=== PATIENT | male | born 1950 | race Caucasian/White ===

== ENCOUNTER 2016-09-05 00:49 | Inpatient (IN) | payer MEDICARE, OTHER ==
[~2016-09-05] VITALS: Ht 180.3 cm; Wt 87.1 kg
[~2016-09-05 00:49] MED LIST: AMLO-511 PO; ATOR20TA86 PO; CLOP75 PO; DIAZ10TA PO; DONE10TA PO; DOXE50CA4 PO; FINA5TAB41 PO; MAGOX PO; METO25TA6 PO; MIRT15 PO; PANT20TA PO; TAMS-1 PO; VITAD1000 PO; [UNRECOGNIZED DRUG - CODE] TD
[2016-09-05] MEDS ORDERED: ALBUTEROL SULFATE 5 MG/ML 20 ML NEB SOLN [BULK] NEB ONE (02:00)
[2016-09-05] MEDS ORDERED: LORazepam 2 MG/ML VIAL IVP ONE ×2 (02:00→03:15)
[2016-09-05] MEDS ORDERED: MORPHINE SULFATE 2 MG/ML SYRINGE IVP ONE (02:00)
[2016-09-05] MEDS ORDERED: IPRATROPIUM BROMIDE 0.5 MG/2.5 ML NEB SOLUTION NEB ONE (02:00)
[2016-09-05 02:24] LABS: BASOPHILS # (AUTO) 0.03 K/uL (0.00-0.20); BASOPHILS % (AUTO) 0.4 % (0.0-2.0); EOSINOPHILS # (AUTO) 0.04 K/uL (0.00-0.70); EOSINOPHILS % (AUTO) 0.56 % (1.0-6.0); HEMATOCRIT 29.9 % (41-53); HEMOGLOBIN 9.6 g/dL (13.5-17.5); LYMPHOCYTES # (AUTO) 1.7 K/uL (1.0-4.8); LYMPHOCYTES % (AUTO) 22.5 % (22.0-44.0); MEAN CORPUSCULAR HEMOGLOBIN 26.1 pg (26.0-34.0); MEAN CORPUSCULAR HGB CONC 32.1 G/dL (31.0-37.0); MEAN CORPUSCULAR VOLUME 81 fL (80-100); MONOCYTES # (AUTO) 0.9 K/uL (0.1-1.0); MONOCYTES % (AUTO) 11.8 % (2.0-9.0); NEUTROPHILS # (AUTO) 4.8 K/uL (1.8-7.7); NEUTROPHILS % (AUTO) 64.8 % (40.0-70.0); RED BLOOD CELL COUNT(AUTO) 3.68 MIL/uL (4.50-5.90); RED CELL DISTRIBUTION WIDTH 23.5 % (11.5-14.5); WHITE BLOOD COUNT (AUTO) 7.4 K/uL (4.5-11.0)
[2016-09-05 02:50] LABS: B-TYPE NATRIURETIC PEPTIDE 59 pg/mL (0-100)
[2016-09-05 02:56] LABS: INR 1.2 (0.9-1.1); PROTHROMBIN TIME 12.8 SEC (9.4-11.6)
[2016-09-05 03:01] LABS: ALANINE AMINOTRANSFERASE 59 U/L (12-78); ALBUMIN 2.6 g/dL (3.4-5.0); ANION GAP 9 mmol/L (8-16); ASPARTATE AMINOTRANSFERASE 156 U/L (15-37); BILIRUBIN,TOTAL 1.6 mg/dL (0.1-1.0); CALCIUM, TOTAL 7.5 mg/dL (8.8-10.5); CARBON DIOXIDE 29 mmol/L (22-29); CHLORIDE 101 mmol/L (98-107); CREATINE KINASE MB 2.7 ng/mL (0-5); CREATINE KINASE, TOTAL 170 U/L (39-308); CREATININE 0.85 mg/dL (0.60-1.30); GLOMERULAR FILTR. RATE CALC > 60 mL/min (>60); SODIUM SERUM 139 mmol/L (136-145); TOTAL PROTEIN, SERUM 7.2 g/dL (6.4-8.2); UREA NITROGEN, BLOOD 10 mg/dL (7-18)
[2016-09-05 03:03] LABS: POTASSIUM 2.9 mmol/L (3.5-5.1)
[2016-09-05 03:05] LABS: PLATELET COUNT (AUTO) 89 K/uL (150-450)
[2016-09-05] MEDS ORDERED: POTASSIUM CHLORIDE 20 MEQ ER TABLET PO ONE (03:15)
[2016-09-05] MEDS ORDERED: IOVERSOL 350 MG/ML 150 ML VIAL ONE (04:24)
[2016-09-05] MEDS ORDERED: SODIUM CHLORIDE 0.9% 100 ML ONE (04:25)
[2016-09-05] MEDS ORDERED: HYDROmorphone 2 MG/ML SYRINGE IVP ONE (04:30)
[2016-09-05] MEDS ORDERED: ACETAMINOPHEN 325 MG TABLET PO PRN (05:15)
[2016-09-05] MEDS ORDERED: HYDROmorphone 2 MG/ML SYRINGE IVP PRN (05:15)
[2016-09-05] MEDS ORDERED: HYDROCODONE/ACETAMINOPHEN 5-325 MG TABLET PO PRN (05:15)
[2016-09-05] MEDS ORDERED: PROCHLORPERAZINE EDISYLATE 5 MG/ML 2 ML VIAL IVP PRN (05:15)
[2016-09-05] MEDS ORDERED: MAGNESIUM SULFATE 2 GM, MVI, ADULT NO.1 WITH VIT K 10 ML, THIAMINE HCL 100 MG, FOLIC AC... IV ONE ×5 (05:15)
[2016-09-05] MEDS ORDERED: MORPHINE SULFATE 4 MG/ML SYRINGE IVP PRN ×2 (05:15→05:45)
[2016-09-05] MEDS ORDERED: MAGNESIUM HYDROXIDE SUSPENSION 30 ML UDCUP PO PRN ×2 (05:15→09:00)
[2016-09-05] MEDS ORDERED: LORazepam 2 MG/ML VIAL IVP PRN (05:15)
[2016-09-05 06:06] LABS: APPEARANCE,URINE CLEAR (CLEAR); GLUCOSE, URINE (UA) NEGATIVE (NEGATIVE); KETONES,URINE NEGATIVE (NEGATIVE); LEUKOCYTE ESTERASE ,URINE NEGATIVE (NEGATIVE); OCCULT BLOOD,URINE NEGATIVE (NEGATIVE); PROTEIN,URINE NEGATIVE (NEGATIVE)
[2016-09-05 06:08] LABS: ADD UA MICROSCOPIC NO
[2016-09-05 06:27] VITALS: BP 132/77
[2016-09-05] MEDS ORDERED: ALBUTEROL SULFATE 2.5 MG/0.5 ML NEB SOLUTION NEB SCH (07:00)
[2016-09-05] MEDS ORDERED: IPRATROPIUM BROMIDE 0.5 MG/2.5 ML NEB SOLUTION NEB SCH (07:00)
[2016-09-05] MEDS ORDERED: PNEUMOCOCCAL VACCINE POLYVALENT 0.5 ML VIAL [PPSV23] IM ONE (07:15)
[2016-09-05 07:49] VITALS: BP 147/87
[2016-09-05 08:38] LABS: BASOPHILS % (AUTO) 0.4 % (0.0-2.0); EOSINOPHILS % (AUTO) 1.1 % (1.0-6.0); HEMATOCRIT 29.6 % (41-53); HEMOGLOBIN 9.3 g/dL (13.5-17.5); LYMPHOCYTES # (AUTO) 1.2 K/uL (1.0-4.8); LYMPHOCYTES % (AUTO) 21.9 % (22.0-44.0); MEAN CORPUSCULAR HEMOGLOBIN 25.4 pg (26.0-34.0); MEAN CORPUSCULAR HGB CONC 31.4 G/dL (31.0-37.0); MEAN CORPUSCULAR VOLUME 81 fL (80-100); MONOCYTES # (AUTO) 0.6 K/uL (0.1-1.0); MONOCYTES % (AUTO) 11.6 % (2.0-9.0); NEUTROPHILS # (AUTO) 3.5 K/uL (1.8-7.7); PLATELET COUNT (AUTO) 69 K/uL (150-450); RED BLOOD CELL COUNT(AUTO) 3.66 MIL/uL (4.50-5.90); RED CELL DISTRIBUTION WIDTH 23.7 % (11.5-14.5); WHITE BLOOD COUNT (AUTO) 5.5 K/uL (4.5-11.0)
[2016-09-05 08:55] LABS: ALANINE AMINOTRANSFERASE 55 U/L (12-78); ALBUMIN 2.4 g/dL (3.4-5.0); ASPARTATE AMINOTRANSFERASE 132 U/L (15-37); SODIUM SERUM 138 mmol/L (136-145); TOTAL PROTEIN, SERUM 6.8 g/dL (6.4-8.2); UREA NITROGEN, BLOOD 10 mg/dL (7-18)
[2016-09-05] MEDS: DOCUSATE SODIUM 100 MG CAPSULE PO SCH ×2 (09:00→21:00)
[2016-09-05] MEDS ORDERED: LEVOFLOXACIN 750 MG/D5% WATER 150 ML IV ONE (09:00)
[2016-09-05] MEDS ORDERED: ENOXAPARIN SODIUM 40 MG/0.4 ML PF SYRINGE SQ SCH ×2 (09:00)
[2016-09-05] MEDS ORDERED: MAGNESIUM OXIDE 400 MG TABLET PO PRN (09:00)
[2016-09-05] MEDS ORDERED: MAGNESIUM SULFATE 4 GM/WATER 100 ML IV PRN (09:00)
[2016-09-05] MEDS ORDERED: PANTOPRAZOLE SODIUM 40 MG/VIAL IVP SCH (09:00)
[2016-09-05] MEDS ORDERED: SODIUM CHLORIDE 0.9% 1,000 ML IV ONE (09:00)
[2016-09-05] MEDS: PANTOPRAZOLE SODIUM 40 MG DR TABLET PO SCH (09:00)
[2016-09-05] MEDS ORDERED: POTASSIUM CHL 10 MEQ/WATER 50 ML IV PRN (09:00)
[2016-09-05] MEDS ORDERED: DOCUSATE SODIUM 100 MG CAPSULE PO SCH (09:00)
[2016-09-05 09:16] LABS: ANION GAP 7 mmol/L (8-16); BILIRUBIN,TOTAL 1.9 mg/dL (0.1-1.0); CALCIUM, TOTAL 7.1 mg/dL (8.8-10.5); CARBON DIOXIDE 31 mmol/L (22-29); CHLORIDE 100 mmol/L (98-107); CREATININE 0.83 mg/dL (0.60-1.30); GLOMERULAR FILTR. RATE CALC > 60 mL/min (>60)
[2016-09-05 09:23] LABS: POTASSIUM 2.7 mmol/L (3.5-5.1)
[2016-09-05] MEDS: POTASSIUM CHLORIDE 20 MEQ ER TABLET PO PRN ×2 (09:39→17:11)
[2016-09-05] MEDS: ASPIRIN 81 MG CHEWABLE TABLET PO SCH (09:40)
[2016-09-05] MEDS: MULTIVITAMINS WITH MINERALS, THERAPEUTIC TABLET PO SCH (09:41)
[2016-09-05 09:50] LABS: RBC MORPHOLOGY COMMENT ABNORMAL RBC MORPH
[2016-09-05 10:02] LABS: INR 1.3 (0.9-1.1); PROTHROMBIN TIME 13.3 SEC (9.4-11.6)
[2016-09-05 11:33] VITALS: BP 153/82
[2016-09-05] MEDS: NICOTINE 21 MG/24 HOUR PATCH TD SCH (12:12)
[2016-09-05] MEDS: LORazepam 2 MG/ML VIAL IVP PRN ×3 (12:12→20:31)
[2016-09-05] MEDS: ACETAMINOPHEN 325 MG TABLET PO PRN ×2 (12:13→21:33)
[2016-09-05] MEDS: MAGNESIUM SULFATE 2 GM in DEXTROSE 5%-WATER 50 ML IV PRN (12:43)
[2016-09-05 16:53] VITALS: BP 153/77
[2016-09-05] MEDS: HEPARIN SODIUM,PORCINE 5,000 UNITS/ML VIAL SQ SCH (17:11)
[2016-09-05] MEDS: ALBUTEROL SULFATE 2.5 MG/0.5 ML NEB SOLUTION NEB PRN (20:45)
[2016-09-05] MEDS ORDERED: 0.9% SODIUM CHLORIDE 5 ML NEB SOLUTION NEB ONE (20:45)
[2016-09-05 21:08] VITALS: BP 151/82
[2016-09-06 00:35] VITALS: BP 149/70
[2016-09-06] MEDS: LORazepam 2 MG/ML VIAL IVP PRN ×5 (00:46→20:52)
[2016-09-06] MEDS: HEPARIN SODIUM,PORCINE 5,000 UNITS/ML VIAL SQ SCH ×4 (00:46→23:44)
[2016-09-06 04:05] VITALS: BP 158/71
[2016-09-06 08:10] VITALS: BP 152/69
[2016-09-06] MEDS: ASPIRIN 81 MG CHEWABLE TABLET PO SCH (09:14)
[2016-09-06] MEDS: MULTIVITAMINS WITH MINERALS, THERAPEUTIC TABLET PO SCH (09:15)
[2016-09-06] MEDS: PANTOPRAZOLE SODIUM 40 MG DR TABLET PO SCH (09:16)
[2016-09-06] MEDS: DOCUSATE SODIUM 100 MG CAPSULE PO SCH ×2 (09:16→20:17)
[2016-09-06] MEDS: NICOTINE 21 MG/24 HOUR PATCH TD SCH (09:17)
[2016-09-06] MEDS ORDERED: 0.9% SODIUM CHLORIDE 5 ML NEB SOLUTION NEB ONE (10:47)
[2016-09-06] MEDS: ALBUTEROL SULFATE 2.5 MG/0.5 ML NEB SOLUTION NEB PRN (10:48)
[2016-09-06 11:22] VITALS: BP 157/82
[2016-09-06] MEDS ORDERED: SODIUM CHLORIDE 0.9% 250 ML IV ONE (12:08)
[2016-09-06] MEDS: MAGNESIUM SULFATE 2 GM in DEXTROSE 5%-WATER 50 ML IV PRN (12:34)
[2016-09-06 15:40] VITALS: BP 117/72
[2016-09-06 20:09] VITALS: BP 140/80
[2016-09-06] MEDS: ACETAMINOPHEN 325 MG TABLET PO PRN (20:18)
[2016-09-07 00:13] VITALS: BP 139/77
[2016-09-07] MEDS: ACETAMINOPHEN 325 MG TABLET PO PRN (00:44)
[2016-09-07] MEDS: LORazepam 2 MG/ML VIAL IVP PRN ×2 (00:44→09:06)
[2016-09-07 04:00] VITALS: BP 149/86
[2016-09-07 08:07] VITALS: BP 162/93
[2016-09-07] MEDS: NICOTINE 21 MG/24 HOUR PATCH TD SCH (09:05)
[2016-09-07] MEDS: MULTIVITAMINS WITH MINERALS, THERAPEUTIC TABLET PO SCH (09:05)
[2016-09-07] MEDS: ASPIRIN 81 MG CHEWABLE TABLET PO SCH (09:05)
[2016-09-07] MEDS: HEPARIN SODIUM,PORCINE 5,000 UNITS/ML VIAL SQ SCH (09:05)
[2016-09-07] MEDS: PANTOPRAZOLE SODIUM 40 MG DR TABLET PO SCH (09:05)
[2016-09-07] MEDS: DOCUSATE SODIUM 100 MG CAPSULE PO SCH (09:05)
[2016-09-07 09:28] VITALS: BP 164/88
[2016-09-07 09:37] LABS: GLUCOSE,POINT OF CARE 100 MG/DL (70-110)
[2016-09-07 11:27] VITALS: BP 134/70
[2016-09-07] MEDS ORDERED: SODIUM CHLORIDE 0.9% 100 ML ONE (12:20)
[2016-09-07] MEDS: MAGNESIUM SULFATE 2 GM in DEXTROSE 5%-WATER 50 ML IV PRN (12:42)
== END 2016-09-07 15:00 | disposition home or self-care (01) | DRG 896 ==
LOC: EMS 00:50 → 5N 04:15
PROVIDERS: ADMIT Internal Medicine; ATTEND Internal Medicine
PROC: 3E0234Z Introduction of Serum, Toxoid and Vaccine into Muscle, Percutaneous Approach (ICD-10-PCS; principal; 2016-09-05)
DX: F10.129 Alcohol abuse with intoxication, unspecified (principal); E43 Unspecified severe protein-calorie malnutrition; D68.4 Acquired coagulation factor deficiency; E87.6 Hypokalemia; R07.9 Chest pain, unspecified; K74.60 Unspecified cirrhosis of liver; F25.9 Schizoaffective disorder, unspecified; I10 Essential (primary) hypertension; E78.00 Pure hypercholesterolemia, unspecified; F32.9 Major depressive disorder, single episode, unspecified; F41.9 Anxiety disorder, unspecified; N40.0 Benign prostatic hyperplasia without lower urinary tract symptoms; K21.9 Gastro-esophageal reflux disease without esophagitis; B19.20 Unspecified viral hepatitis C without hepatic coma; E83.42 Hypomagnesemia; F03.90 Unspecified dementia, unspecified severity, without behavioral disturbance, psychotic disturbance, mood disturbance, and anxiety; F17.210 Nicotine dependence, cigarettes, uncomplicated; J44.9 Chronic obstructive pulmonary disease, unspecified; Y90.9 Presence of alcohol in blood, level not specified; Z79.02 Long term (current) use of antithrombotics/antiplatelets; Z23 Encounter for immunization; Z79.899 Other long term (current) drug therapy; Z91.19 Patient's noncompliance with other medical treatment and regimen; Z59.0 Homelessness; Z86.73 Personal history of transient ischemic attack (TIA), and cerebral infarction without residual deficits; Z68.26 Body mass index [BMI] 26.0-26.9, adult
CPT/HCPCS: 71275; 82962; 83735; 84132; 85379; 90471; 93005; 94640; 96374; 96375; 96376; 97163; 97530; 99285; C9113; G0480; J0780; J1170; J1644; J1650; J1956; J2060; J2270; J3411; J3475; J3490; J7030; J7050; J7060

== ENCOUNTER 2017-05-30 23:00 | Emergency (ER) | payer MEDICARE, OTHER ==
[~2017-05-30] VITALS: Ht 180.3 cm; Wt 87.0 kg
[~2017-05-30 23:00] MED LIST changes: -DIAZ10TA PO; -DONE10TA PO; +DONE10TA8 PO; -DOXE50CA4 PO; +NICO-704 TD; -[UNRECOGNIZED DRUG - CODE] TD
[2017-05-31 00:18] LABS: ANION GAP 14 mmol/L (8-16); CARBON DIOXIDE 23 mmol/L (22-29); CHLORIDE 98 mmol/L (98-107); CREATININE 2.24 mg/dL (0.60-1.30); GLOMERULAR FILTR. RATE CALC 29 mL/min (>60); GLUCOSE,RANDOM 69 mg/dL (70-110); POTASSIUM 4.6 mmol/L (3.5-5.1); SODIUM SERUM 135 mmol/L (136-145); UREA NITROGEN, BLOOD 45 mg/dL (7-18)
[2017-05-31 00:22] LABS: ACETAMINOPHEN 8 mcg/mL (10-30); ALANINE AMINOTRANSFERASE 58 U/L (12-78); ALBUMIN 3.7 g/dL (3.4-5.0); ALKALINE PHOSPHATASE 101 U/L (46-116); ASPARTATE AMINOTRANSFERASE 84 U/L (15-37); BILIRUBIN,TOTAL 0.8 mg/dL (0.1-1.0); SALICYLATE < 2.8 mg/dL (2.8-20.0); TOTAL PROTEIN, SERUM 7.9 g/dL (6.4-8.2)
[2017-05-31 00:27] LABS: BASOPHILS % (AUTO) 0.4 % (0.0-2.0); HEMATOCRIT 34.1 % (41-53); HEMOGLOBIN 10.9 g/dL (13.5-17.5); LYMPHOCYTES # (AUTO) 1.6 K/uL (1.0-4.8); LYMPHOCYTES % (AUTO) 20.7 % (22.0-44.0); MEAN CORPUSCULAR HEMOGLOBIN 24.8 pg (26.0-34.0); MEAN CORPUSCULAR HGB CONC 32.1 G/dL (31.0-37.0); MEAN CORPUSCULAR VOLUME 77 fL (80-100); MONOCYTES % (AUTO) 12.8 % (2.0-9.0); NEUTROPHILS # (AUTO) 4.7 K/uL (1.8-7.7); NEUTROPHILS % (AUTO) 62.1 % (40.0-70.0); PLATELET COUNT (AUTO) 121 K/uL (150-450); RED BLOOD CELL COUNT(AUTO) 4.41 MIL/uL (4.50-5.90); RED CELL DISTRIBUTION WIDTH 19.6 % (11.5-14.5)
[2017-05-31] MEDS ORDERED: SODIUM CHLORIDE 0.9% 1,000 ML IV ONE (01:00)
[2017-05-31 02:41] VITALS: BP 107/55
== END 2017-05-31 03:13 | disposition home or self-care (01) ==
LOC: EMS 05-31 00:38
DX: T40.2X1A Poisoning by other opioids, accidental (unintentional), initial encounter (principal); N28.9 Disorder of kidney and ureter, unspecified; I10 Essential (primary) hypertension; K21.9 Gastro-esophageal reflux disease without esophagitis; J44.9 Chronic obstructive pulmonary disease, unspecified; F17.210 Nicotine dependence, cigarettes, uncomplicated; Y92.89 Other specified places as the place of occurrence of the external cause
CPT/HCPCS: 36415; 80053; 85025; 99284; G0480 ×2; G0481; J7030

== ENCOUNTER 2018-01-19 09:33 | Emergency (ER) | payer MEDICARE, OTHER ==
[~2018-01-19] VITALS: Ht 177.8 cm; Wt 93.2 kg
[~2018-01-19 09:33] MED LIST changes: +AMLO-512 PO; +CARV6 PO; -CLOP75 PO; +FURO40 PO; +HYDR-309 PO; +LISI40TA4 PO; +LORA1TAB3 PO; -MAGOX PO; -METO25TA6 PO; -NICO-704 TD; +OMEP20 PO; -PANT20TA PO; +PARO20TA24 PO; +RIFAX550 PO
[2018-01-19] MEDS ORDERED: SODIUM CHLORIDE 0.9% 1,000 ML IV ONE (10:45)
[2018-01-19 10:49] LABS: BASOPHILS % (AUTO) 0.4 % (0.0-2.0); EOSINOPHILS % (AUTO) 4.5 % (1.0-6.0); HEMATOCRIT 39.7 % (41-53); HEMOGLOBIN 13.6 g/dL (13.5-17.5); LYMPHOCYTES # (AUTO) 1.4 K/uL (1.0-4.8); LYMPHOCYTES % (AUTO) 24.1 % (22.0-44.0); MEAN CORPUSCULAR HGB CONC 34.3 G/dL (31.0-37.0); MEAN CORPUSCULAR VOLUME 102 fL (80-100); MONOCYTES # (AUTO) 0.7 K/uL (0.1-1.0); MONOCYTES % (AUTO) 11.8 % (2.0-9.0); NEUTROPHILS # (AUTO) 3.5 K/uL (1.8-7.7); NEUTROPHILS % (AUTO) 59.2 % (40.0-70.0); PLATELET COUNT (AUTO) 69 K/uL (150-450); RED CELL DISTRIBUTION WIDTH 14.1 % (11.5-14.5)
[2018-01-19 10:59] LABS: CALCIUM, TOTAL 8.8 mg/dL (8.8-10.5); CREATININE 1.77 mg/dL (0.60-1.30); POTASSIUM 3.9 mmol/L (3.5-5.1)
[2018-01-19 11:05] LABS: ALBUMIN 2.9 g/dL (3.4-5.0); BILIRUBIN,TOTAL 1.2 mg/dL (0.1-1.0); TOTAL PROTEIN, SERUM 7.1 g/dL (6.4-8.2)
[2018-01-19 11:07] LABS: APPEARANCE,URINE CLOUDY (CLEAR); BILIRUBIN,URINE NEGATIVE (NEGATIVE); GLUCOSE, URINE (UA) NEGATIVE (NEGATIVE); KETONES,URINE NEGATIVE (NEGATIVE); LEUKOCYTE ESTERASE ,URINE LARGE (NEGATIVE); NITRATE,URINE POSITIVE (NEGATIVE); OCCULT BLOOD,URINE NEGATIVE (NEGATIVE); PROTEIN,URINE NEGATIVE (NEGATIVE)
[2018-01-19 11:09] LABS: AMPHET/METH SCREEN,URINE NEGATIVE (NEGATIVE); BARBITURATE SCREEN, URINE NEGATIVE (NEGATIVE); BENZODIAZEPINES SCREEN,URINE NEGATIVE (NEGATIVE); CANNABINOID SCREEN,URINE NEGATIVE (NEGATIVE); COCAINE SCREEN,URINE NEGATIVE (NEGATIVE); METHADONE SCREEN, URINE NEGATIVE (NEGATIVE); OPIATE SCREEN,URINE POSITIVE (NEGATIVE)
[2018-01-19 11:10] LABS: PHENCYCLIDINE SCREEN,URINE NEGATIVE (NEGATIVE)
[2018-01-19 11:17] LABS: BACTERIA,URINE Moderate /HPF (None Seen); RBC,URINE None Seen /HPF (0-2); WBC,URINE 26-50 /HPF (0-5)
[2018-01-19 11:18] LABS: SQUAMOUS EPITHELIAL CELL,UR Few /LPF (None Seen)
[2018-01-19] MEDS ORDERED: CefTRIAXone SODIUM 1 GM in DEXTROSE 5%-WATER 10 ML IV ONE (11:30)
[2018-01-19] MEDS ORDERED: ACETAMINOPHEN 160 MG/5 ML SUSPENSION UDCUP PO ONE (12:15)
[2018-01-19 12:38] VITALS: BP 125/60
== END 2018-01-19 13:05 | disposition home or self-care (01) ==
LOC: EMS 09:34
DX: N39.0 Urinary tract infection, site not specified (principal); E86.0 Dehydration; R55 Syncope and collapse; N19 Unspecified kidney failure; F11.20 Opioid dependence, uncomplicated; N40.0 Benign prostatic hyperplasia without lower urinary tract symptoms; J44.9 Chronic obstructive pulmonary disease, unspecified; I10 Essential (primary) hypertension; I48.91 Unspecified atrial fibrillation; G40.909 Epilepsy, unspecified, not intractable, without status epilepticus; F10.20 Alcohol dependence, uncomplicated; Y90.9 Presence of alcohol in blood, level not specified; F32.9 Major depressive disorder, single episode, unspecified; F17.210 Nicotine dependence, cigarettes, uncomplicated; Z90.89 Acquired absence of other organs; Z98.890 Other specified postprocedural states; Z88.6 Allergy status to analgesic agent; Z88.5 Allergy status to narcotic agent; Z79.899 Other long term (current) drug therapy
CPT/HCPCS: 36415; 71045; 80053; 80307; 81001; 82550; 82948; 83880; 84484; 85025; 87077; 87086; 87186; 93005; 96361; 96374; 99285; J0696; J7030; J7060

== ENCOUNTER 2018-10-08 07:45 | Inpatient (IN) | payer MEDICARE, MEDICAID ==
[~2018-10-08] VITALS: Ht 180.3 cm; Wt 95.4 kg
[~2018-10-08 07:45] MED LIST changes: -AMLO-511 PO; +ATOR10TA84 PO; -ATOR20TA86 PO; -DONE10TA8 PO; -FINA5TAB41 PO; -FURO40 PO; -HYDR-309 PO; -LISI40TA4 PO; -LORA1TAB3 PO; -MIRT15 PO; +MULT-248 PO; -OMEP20 PO; -PARO20TA24 PO; -RIFAX550 PO; -VITAD1000 PO
[2018-10-08 09:06] LABS: BASOPHILS % (AUTO) 0.4 % (0.0-2.0); EOSINOPHILS % (AUTO) 4.2 % (1.0-6.0); HEMATOCRIT 40.1 % (41-53); HEMOGLOBIN 13.4 g/dL (13.5-17.5); LYMPHOCYTES % (AUTO) 17.9 % (22.0-44.0); MEAN CORPUSCULAR HEMOGLOBIN 33.3 pg (26.0-34.0); MEAN CORPUSCULAR HGB CONC 33.5 G/dL (31.0-37.0); MEAN CORPUSCULAR VOLUME 99 fL (80-100); MONOCYTES # (AUTO) 1.5 K/uL (0.1-1.0); MONOCYTES % (AUTO) 13.4 % (2.0-9.0); NEUTROPHILS # (AUTO) 7.1 K/uL (1.8-7.7); NEUTROPHILS % (AUTO) 64.1 % (40.0-70.0); PLATELET COUNT (AUTO) 177 K/uL (150-450); RED BLOOD CELL COUNT(AUTO) 4.04 MIL/uL (4.50-5.90); RED CELL DISTRIBUTION WIDTH 14.5 % (11.5-14.5)
[2018-10-08 09:13] LABS: ANION GAP 12 mmol/L (8-16); CARBON DIOXIDE 23 mmol/L (22-29); CHLORIDE 99 mmol/L (98-107); CREATININE 0.99 mg/dL (0.60-1.30); GLOMERULAR FILTR. RATE CALC > 60 mL/min (>60); GLUCOSE,RANDOM 106 mg/dL (70-110); POTASSIUM 3.7 mmol/L (3.5-5.1); SODIUM SERUM 134 mmol/L (136-145); UREA NITROGEN, BLOOD 22 mg/dL (7-18)
[2018-10-08 09:22] LABS: ALANINE AMINOTRANSFERASE 69 U/L (12-78); ALBUMIN 3.4 g/dL (3.4-5.0); ALKALINE PHOSPHATASE 163 U/L (46-116); ASPARTATE AMINOTRANSFERASE 94 U/L (15-37); BILIRUBIN,TOTAL 1.9 mg/dL (0.1-1.0); TOTAL PROTEIN, SERUM 7.9 g/dL (6.4-8.2)
[2018-10-08 10:52] LABS: AMPHET/METH SCREEN,URINE NEGATIVE (NEGATIVE); BARBITURATE SCREEN, URINE NEGATIVE (NEGATIVE); BENZODIAZEPINES SCREEN,URINE NEGATIVE (NEGATIVE); CANNABINOID SCREEN,URINE NEGATIVE (NEGATIVE); COCAINE SCREEN,URINE NEGATIVE (NEGATIVE); METHADONE SCREEN, URINE NEGATIVE (NEGATIVE); OPIATE SCREEN,URINE NEGATIVE (NEGATIVE)
[2018-10-08 10:53] LABS: PHENCYCLIDINE SCREEN,URINE NEGATIVE (NEGATIVE)
[2018-10-08] MEDS: LORazepam 2 MG TABLET PO PRN ×2 (13:34→20:51)
[2018-10-08] MEDS: CARVEDILOL 6.25 MG TABLET PO SCH (21:04)
[2018-10-08 21:43] VITALS: BP 140/90
[2018-10-09 06:45] LABS: CHOL/HDL RATIO 1.8 (4.2-7.3)
[2018-10-09] MEDS: CARVEDILOL 6.25 MG TABLET PO SCH ×2 (08:46→16:27)
[2018-10-09] MEDS: AmLODIPine BESYLATE 5 MG TABLET PO SCH (08:46)
[2018-10-09] MEDS: ATORVASTATIN CALCIUM 20 MG TABLET PO SCH (08:46)
[2018-10-09] MEDS: TAMSULOSIN HCL 0.4 MG CAPSULE PO SCH (08:46)
[2018-10-09] MEDS: MULTIVITAMINS WITH MINERALS, THERAPEUTIC TABLET PO SCH (08:46)
[2018-10-09] MEDS: LORazepam 2 MG TABLET PO PRN ×2 (08:50→14:23)
[2018-10-09 12:29] VITALS: BP 122/82
[2018-10-09 14:20] VITALS: BP 120/70
[2018-10-09] MEDS: ACETAMINOPHEN 325 MG TABLET PO PRN (14:23)
[2018-10-09] MEDS: HALOPERIDOL 5 MG TABLET PO PRN (14:23)
[2018-10-09 15:12] LABS: APPEARANCE,URINE CLOUDY (CLEAR); GLUCOSE, URINE (UA) NEGATIVE (NEGATIVE); KETONES,URINE NEGATIVE (NEGATIVE); LEUKOCYTE ESTERASE ,URINE SMALL (NEGATIVE); NITRATE,URINE NEGATIVE (NEGATIVE); OCCULT BLOOD,URINE NEGATIVE (NEGATIVE); PH,URINE 5.5 (5.0-8.0); PROTEIN,URINE NEGATIVE (NEGATIVE)
[2018-10-09 15:29] LABS: BILIRUBIN,URINE PRELIM. POSITIVE (NEGATIVE)
[2018-10-09 15:46] LABS: BACTERIA,URINE Many /HPF (None Seen)
[2018-10-09 15:47] LABS: RBC,URINE 0-2 /HPF (0-2); SQUAMOUS EPITHELIAL CELL,UR Rare /LPF (None Seen)
[2018-10-09 16:25] VITALS: BP 131/73
[2018-10-10] MEDS: ZOLPIDEM TARTRATE 10 MG TABLET PO PRN (01:24)
[2018-10-10] MEDS: MULTIVITAMINS WITH MINERALS, THERAPEUTIC TABLET PO SCH (08:02)
[2018-10-10] MEDS: ATORVASTATIN CALCIUM 20 MG TABLET PO SCH (08:02)
[2018-10-10] MEDS: RisperiDONE 2 MG TABLET PO SCH ×2 (08:02→18:06)
[2018-10-10] MEDS: TAMSULOSIN HCL 0.4 MG CAPSULE PO SCH (08:02)
[2018-10-10] MEDS: AmLODIPine BESYLATE 5 MG TABLET PO SCH (08:02)
[2018-10-10] MEDS: NITROFURANTOIN/NITROFURAN MAC 100 MG CAPSULE [MACROBID] PO SCH ×2 (08:02→18:06)
[2018-10-10] MEDS: CARVEDILOL 6.25 MG TABLET PO SCH ×2 (08:03→18:06)
[2018-10-10 09:21] VITALS: BP 124/72
[2018-10-10] MEDS: LORazepam 2 MG TABLET PO PRN ×2 (14:29→19:01)
[2018-10-10 17:00] VITALS: BP 126/63
[2018-10-10] MEDS: HALOPERIDOL 5 MG TABLET PO PRN (19:01)
[2018-10-11] MEDS: ZOLPIDEM TARTRATE 10 MG TABLET PO PRN ×2 (02:38→21:15)
[2018-10-11] MEDS: NITROFURANTOIN/NITROFURAN MAC 100 MG CAPSULE [MACROBID] PO SCH ×2 (08:30→16:17)
[2018-10-11] MEDS: ATORVASTATIN CALCIUM 20 MG TABLET PO SCH (08:30)
[2018-10-11] MEDS: CARVEDILOL 6.25 MG TABLET PO SCH ×2 (08:30→16:17)
[2018-10-11] MEDS: AmLODIPine BESYLATE 5 MG TABLET PO SCH (08:32)
[2018-10-11] MEDS: RisperiDONE 2 MG TABLET PO SCH ×2 (08:32→18:01)
[2018-10-11] MEDS: TAMSULOSIN HCL 0.4 MG CAPSULE PO SCH (08:32)
[2018-10-11] MEDS: MULTIVITAMINS WITH MINERALS, THERAPEUTIC TABLET PO SCH (08:32)
[2018-10-11] MEDS ORDERED: ALBUTEROL SULFATE 2.5 MG/0.5 ML NEB SOLUTION NEB PRN (08:45)
[2018-10-11] MEDS ORDERED: MUPIROCIN CALCIUM 2% 15 GM CREAM TP SCH (09:00)
[2018-10-11] MEDS: FUROSEMIDE 20 MG TABLET PO SCH ×2 (09:27→18:01)
[2018-10-11] MEDS: MUPIROCIN CALCIUM 2% 22 GM OINTMENT TP SCH ×2 (09:27→18:01)
[2018-10-11 09:49] VITALS: BP 149/77
[2018-10-11 16:00] VITALS: BP 137/70
[2018-10-11] MEDS: LORazepam 2 MG TABLET PO PRN ×2 (16:16→21:05)
[2018-10-11] MEDS: HALOPERIDOL 5 MG TABLET PO PRN ×2 (16:16→21:05)
[2018-10-11] MEDS: ALBUTEROL SULFATE 2.5 MG/0.5 ML NEB SOLUTION NEB PRN (17:08)
[2018-10-11] MEDS: IPRATROPIUM BROMIDE 0.5 MG/2.5 ML NEB SOLUTION NEB PRN (17:08)
[2018-10-11 19:01] LABS: ABG A-A DIFF O2 27.7 mmHg (10-20.0); ABG BASE EXCESS 5.7 mmol/L (-2.0-3.0); ABG CARBOXYHEMOGLOBIN 0.3 % (0.0-1.5); ABG METHEMOGLOBIN 0.3 % (0.0-1.5); ABG OXYGEN CONTENT 14.9 mL/dL (15.0-23.0); ABG OXYHEMOGLOBIN 92.4 % (94.0-100.0); ABG PCO2 43 mmHg (35-45); ABG PH 7.452 (7.35-7.450); ABG TOTAL HEMOGLOBIN 11.4 G/dL (12.0-18.0); O2 DEVICE,BLOOD GAS ROOM AIR (ROOM AIR); PO2, ARTERIAL BG 70.1 mmHg (79.0-87.0); SITE, BLOOD GAS LFT RADIAL; SOURCE, BLOOD GAS ARTERIAL; TEMPERATURE, FAHRENHEIT, BG 98.6 FAHREN (96.0-98.6)
[2018-10-11] MEDS: BUDESONIDE 0.5 MG/2 ML NEB SOLUTION NEB SCH (21:00)
[2018-10-11] MEDS: ALBUTEROL SULFATE 2.5 MG/0.5 ML NEB SOLUTION NEB SCH (21:57)
[2018-10-11] MEDS: IPRATROPIUM BROMIDE 0.5 MG/2.5 ML NEB SOLUTION NEB SCH (21:57)
[2018-10-12] MEDS: LORazepam 2 MG TABLET PO PRN ×3 (06:24→21:30)
[2018-10-12 07:06] LABS: BASOPHILS % (AUTO) 0.7 % (0.0-2.0); EOSINOPHILS % (AUTO) 5.3 % (1.0-6.0); HEMATOCRIT 37.9 % (41-53); HEMOGLOBIN 12.7 g/dL (13.5-17.5); LYMPHOCYTES # (AUTO) 1.6 K/uL (1.0-4.8); LYMPHOCYTES % (AUTO) 23.9 % (22.0-44.0); MEAN CORPUSCULAR HEMOGLOBIN 34.1 pg (26.0-34.0); MEAN CORPUSCULAR HGB CONC 33.5 G/dL (31.0-37.0); MEAN CORPUSCULAR VOLUME 102 fL (80-100); MONOCYTES # (AUTO) 0.9 K/uL (0.1-1.0); MONOCYTES % (AUTO) 12.7 % (2.0-9.0); NEUTROPHILS # (AUTO) 3.9 K/uL (1.8-7.7); NEUTROPHILS % (AUTO) 57.4 % (40.0-70.0); PLATELET COUNT (AUTO) 113 K/uL (150-450); RED BLOOD CELL COUNT(AUTO) 3.72 MIL/uL (4.50-5.90); RED CELL DISTRIBUTION WIDTH 14.9 % (11.5-14.5)
[2018-10-12] MEDS: MULTIVITAMINS WITH MINERALS, THERAPEUTIC TABLET PO SCH (07:56)
[2018-10-12] MEDS: RisperiDONE 2 MG TABLET PO SCH ×2 (07:56→17:04)
[2018-10-12] MEDS: AmLODIPine BESYLATE 5 MG TABLET PO SCH (07:56)
[2018-10-12] MEDS: NITROFURANTOIN/NITROFURAN MAC 100 MG CAPSULE [MACROBID] PO SCH ×2 (07:56→17:04)
[2018-10-12] MEDS: TAMSULOSIN HCL 0.4 MG CAPSULE PO SCH (07:56)
[2018-10-12] MEDS: ATORVASTATIN CALCIUM 20 MG TABLET PO SCH (07:56)
[2018-10-12] MEDS: CARVEDILOL 6.25 MG TABLET PO SCH ×2 (07:56→17:04)
[2018-10-12] MEDS: MUPIROCIN CALCIUM 2% 22 GM OINTMENT TP SCH ×2 (07:57→17:04)
[2018-10-12 08:16] LABS: ALANINE AMINOTRANSFERASE 51 U/L (12-78); ALBUMIN 2.9 g/dL (3.4-5.0); ALKALINE PHOSPHATASE 141 U/L (46-116); ANION GAP 12 mmol/L (8-16); ASPARTATE AMINOTRANSFERASE 73 U/L (15-37); BILIRUBIN,TOTAL 1.1 mg/dL (0.1-1.0); CALCIUM, TOTAL 8.6 mg/dL (8.8-10.5); CARBON DIOXIDE 29 mmol/L (22-29); CHLORIDE 103 mmol/L (98-107); CREATINE KINASE, TOTAL ONLY 71 U/L (39-308); CREATININE 0.91 mg/dL (0.60-1.30); GLOMERULAR FILTR. RATE CALC > 60 mL/min (>60); GLUCOSE,RANDOM 87 mg/dL (70-110); POTASSIUM 4.3 mmol/L (3.5-5.1); SODIUM SERUM 144 mmol/L (136-145); UREA NITROGEN, BLOOD 16 mg/dL (7-18)
[2018-10-12] MEDS ORDERED: FUROSEMIDE 20 MG TABLET PO SCH (09:00)
[2018-10-12] MEDS: BUDESONIDE 0.5 MG/2 ML NEB SOLUTION NEB SCH (09:07)
[2018-10-12] MEDS: ALBUTEROL SULFATE 2.5 MG/0.5 ML NEB SOLUTION NEB SCH (09:07)
[2018-10-12] MEDS: IPRATROPIUM BROMIDE 0.5 MG/2.5 ML NEB SOLUTION NEB SCH (09:07)
[2018-10-12 09:24] VITALS: BP 120/68
[2018-10-12] MEDS: HALOPERIDOL 5 MG TABLET PO PRN ×2 (16:20→21:30)
[2018-10-12 18:00] VITALS: BP 136/63
[2018-10-12] MEDS: ZOLPIDEM TARTRATE 10 MG TABLET PO PRN (22:24)
[2018-10-13] MEDS: NITROFURANTOIN/NITROFURAN MAC 100 MG CAPSULE [MACROBID] PO SCH ×2 (08:02→18:06)
[2018-10-13] MEDS: RisperiDONE 2 MG TABLET PO SCH ×2 (08:02→18:08)
[2018-10-13] MEDS: ATORVASTATIN CALCIUM 20 MG TABLET PO SCH (08:02)
[2018-10-13] MEDS: MULTIVITAMINS WITH MINERALS, THERAPEUTIC TABLET PO SCH (08:02)
[2018-10-13] MEDS: AmLODIPine BESYLATE 5 MG TABLET PO SCH (08:02)
[2018-10-13] MEDS: CARVEDILOL 6.25 MG TABLET PO SCH ×2 (08:02→18:06)
[2018-10-13] MEDS: TAMSULOSIN HCL 0.4 MG CAPSULE PO SCH (08:02)
[2018-10-13] MEDS: MUPIROCIN CALCIUM 2% 22 GM OINTMENT TP SCH ×2 (08:03→18:06)
[2018-10-13 08:33] VITALS: BP 150/79
[2018-10-13] MEDS: IPRATROPIUM BROMIDE 0.5 MG/2.5 ML NEB SOLUTION NEB SCH ×2 (10:52→19:17)
[2018-10-13] MEDS: ALBUTEROL SULFATE 2.5 MG/0.5 ML NEB SOLUTION NEB SCH ×2 (10:52→19:17)
[2018-10-13] MEDS: BUDESONIDE 0.5 MG/2 ML NEB SOLUTION NEB SCH ×2 (10:52→19:18)
[2018-10-13 18:04] VITALS: BP 123/65
[2018-10-13] MEDS ORDERED: ATOR20TA86 PO (18:54)
[2018-10-13] MEDS ORDERED: AMOXICILLIN TRIHYDRATE 500 MG CAPSULE PO ONE (20:45)
[2018-10-13] MEDS: ZOLPIDEM TARTRATE 10 MG TABLET PO PRN (21:20)
[2018-10-14] MEDS: LORazepam 2 MG TABLET PO PRN ×2 (01:37→18:58)
[2018-10-14] MEDS: HALOPERIDOL 5 MG TABLET PO PRN ×2 (01:37→18:58)
[2018-10-14 01:48] VITALS: BP 122/65
[2018-10-14] MEDS: MUPIROCIN CALCIUM 2% 22 GM OINTMENT TP SCH ×2 (08:28→16:54)
[2018-10-14] MEDS: CARVEDILOL 6.25 MG TABLET PO SCH ×2 (08:29→16:53)
[2018-10-14] MEDS: AMOXICILLIN TRIHYDRATE 500 MG CAPSULE PO SCH ×3 (08:29→16:53)
[2018-10-14] MEDS: ATORVASTATIN CALCIUM 20 MG TABLET PO SCH (08:29)
[2018-10-14] MEDS: MULTIVITAMINS WITH MINERALS, THERAPEUTIC TABLET PO SCH (08:31)
[2018-10-14] MEDS: TAMSULOSIN HCL 0.4 MG CAPSULE PO SCH (08:31)
[2018-10-14] MEDS: RisperiDONE 2 MG TABLET PO SCH ×2 (08:31→16:53)
[2018-10-14] MEDS: AmLODIPine BESYLATE 5 MG TABLET PO SCH (08:31)
[2018-10-14] MEDS: BUDESONIDE 0.5 MG/2 ML NEB SOLUTION NEB SCH ×2 (10:00→19:42)
[2018-10-14] MEDS: ALBUTEROL SULFATE 2.5 MG/0.5 ML NEB SOLUTION NEB SCH ×2 (10:00→19:42)
[2018-10-14] MEDS: IPRATROPIUM BROMIDE 0.5 MG/2.5 ML NEB SOLUTION NEB SCH ×2 (10:00→19:42)
[2018-10-14 11:29] VITALS: BP 111/76
[2018-10-14] MEDS ORDERED: MAGNESIUM OXIDE 400 MG TABLET PO SCH (11:30)
[2018-10-14] MEDS: ACETAMINOPHEN 325 MG TABLET PO PRN (19:11)
[2018-10-14 19:12] VITALS: BP 134/72
[2018-10-14] MEDS: ZOLPIDEM TARTRATE 10 MG TABLET PO PRN (21:25)
[2018-10-15 00:03] VITALS: BP 120/71
[2018-10-15] MEDS: LORazepam 2 MG TABLET PO PRN (00:05)
[2018-10-15] MEDS: HALOPERIDOL 5 MG TABLET PO PRN (01:55)
[2018-10-15 06:00] LABS: ALANINE AMINOTRANSFERASE 53 U/L (12-78); ALBUMIN 2.5 g/dL (3.4-5.0); ALKALINE PHOSPHATASE 123 U/L (46-116); ANION GAP 12 mmol/L (8-16); ASPARTATE AMINOTRANSFERASE 70 U/L (15-37); BILIRUBIN,TOTAL 0.7 mg/dL (0.1-1.0); CALCIUM, TOTAL 8.4 mg/dL (8.8-10.5); CARBON DIOXIDE 29 mmol/L (22-29); CHLORIDE 106 mmol/L (98-107); CREATINE KINASE, TOTAL ONLY 55 U/L (39-308); CREATININE 0.96 mg/dL (0.60-1.30); GLOMERULAR FILTR. RATE CALC > 60 mL/min (>60); GLUCOSE,RANDOM 118 mg/dL (70-110); POTASSIUM 4.4 mmol/L (3.5-5.1); SODIUM SERUM 147 mmol/L (136-145); TOTAL PROTEIN, SERUM 6.1 g/dL (6.4-8.2); UREA NITROGEN, BLOOD 26 mg/dL (7-18)
[2018-10-15 08:10] VITALS: BP 139/93
[2018-10-15] MEDS: RisperiDONE 2 MG TABLET PO SCH ×2 (08:14→16:47)
[2018-10-15] MEDS: AmLODIPine BESYLATE 5 MG TABLET PO SCH (08:14)
[2018-10-15] MEDS: TAMSULOSIN HCL 0.4 MG CAPSULE PO SCH (08:14)
[2018-10-15] MEDS: MAGNESIUM OXIDE 400 MG TABLET PO SCH ×2 (08:14→16:47)
[2018-10-15] MEDS: MULTIVITAMINS WITH MINERALS, THERAPEUTIC TABLET PO SCH (08:14)
[2018-10-15] MEDS: CARVEDILOL 6.25 MG TABLET PO SCH ×2 (08:15→16:45)
[2018-10-15] MEDS: ATORVASTATIN CALCIUM 20 MG TABLET PO SCH (08:15)
[2018-10-15] MEDS: AMOXICILLIN TRIHYDRATE 500 MG CAPSULE PO SCH ×3 (08:15→16:45)
[2018-10-15] MEDS: MUPIROCIN CALCIUM 2% 22 GM OINTMENT TP SCH ×2 (08:17→16:46)
[2018-10-15] MEDS: BUDESONIDE 0.5 MG/2 ML NEB SOLUTION NEB SCH (09:39)
[2018-10-15] MEDS: IPRATROPIUM BROMIDE 0.5 MG/2.5 ML NEB SOLUTION NEB SCH (09:40)
[2018-10-15] MEDS: ALBUTEROL SULFATE 2.5 MG/0.5 ML NEB SOLUTION NEB SCH (09:40)
[2018-10-15 16:00] VITALS: BP 144/72
[2018-10-16] MEDS: LORazepam 2 MG TABLET PO PRN (02:47)
[2018-10-16] MEDS: ZOLPIDEM TARTRATE 10 MG TABLET PO PRN (02:48)
[2018-10-16 02:54] VITALS: BP 121/69
[2018-10-16] MEDS: IPRATROPIUM BROMIDE 0.5 MG/2.5 ML NEB SOLUTION NEB SCH ×3 (05:32→16:31)
[2018-10-16] MEDS: ALBUTEROL SULFATE 2.5 MG/0.5 ML NEB SOLUTION NEB SCH ×3 (05:32→16:31)
[2018-10-16] MEDS: BUDESONIDE 0.5 MG/2 ML NEB SOLUTION NEB SCH ×3 (05:32→16:31)
[2018-10-16] MEDS: AmLODIPine BESYLATE 5 MG TABLET PO SCH (08:33)
[2018-10-16] MEDS: AMOXICILLIN TRIHYDRATE 500 MG CAPSULE PO SCH ×3 (08:33→17:34)
[2018-10-16] MEDS: TAMSULOSIN HCL 0.4 MG CAPSULE PO SCH (08:33)
[2018-10-16] MEDS: ATORVASTATIN CALCIUM 20 MG TABLET PO SCH (08:33)
[2018-10-16] MEDS: MULTIVITAMINS WITH MINERALS, THERAPEUTIC TABLET PO SCH (08:33)
[2018-10-16] MEDS: RisperiDONE 2 MG TABLET PO SCH ×2 (08:34→17:34)
[2018-10-16] MEDS: CARVEDILOL 6.25 MG TABLET PO SCH ×2 (08:34→17:34)
[2018-10-16] MEDS: MAGNESIUM OXIDE 400 MG TABLET PO SCH ×2 (08:35→17:34)
[2018-10-16 09:48] VITALS: BP 151/90
[2018-10-16] MEDS: ACETAMINOPHEN 325 MG TABLET PO PRN (12:38)
[2018-10-16 19:03] VITALS: BP 137/82
[2018-10-17] MEDS: ALBUTEROL SULFATE 2.5 MG/0.5 ML NEB SOLUTION NEB PRN (00:52)
[2018-10-17] MEDS: IPRATROPIUM BROMIDE 0.5 MG/2.5 ML NEB SOLUTION NEB PRN (00:52)
[2018-10-17 09:25] VITALS: BP 100/63
[2018-10-17] MEDS: ATORVASTATIN CALCIUM 20 MG TABLET PO SCH (09:54)
[2018-10-17] MEDS: CARVEDILOL 6.25 MG TABLET PO SCH (09:54)
[2018-10-17] MEDS: AMOXICILLIN TRIHYDRATE 500 MG CAPSULE PO SCH ×2 (09:54→13:11)
[2018-10-17] MEDS: MULTIVITAMINS WITH MINERALS, THERAPEUTIC TABLET PO SCH (09:56)
[2018-10-17] MEDS: AmLODIPine BESYLATE 5 MG TABLET PO SCH (09:56)
[2018-10-17] MEDS: MAGNESIUM OXIDE 400 MG TABLET PO SCH (09:56)
[2018-10-17] MEDS: TAMSULOSIN HCL 0.4 MG CAPSULE PO SCH (09:56)
[2018-10-17] MEDS: RisperiDONE 2 MG TABLET PO SCH (09:59)
[2018-10-17] MEDS: ALBUTEROL SULFATE 2.5 MG/0.5 ML NEB SOLUTION NEB SCH (10:02)
[2018-10-17] MEDS: IPRATROPIUM BROMIDE 0.5 MG/2.5 ML NEB SOLUTION NEB SCH (10:02)
[2018-10-17] MEDS: BUDESONIDE 0.5 MG/2 ML NEB SOLUTION NEB SCH (10:02)
[2018-10-17] MEDS ORDERED: RISP2 PO (12:13)
[2018-10-17] MEDS ORDERED: MAGOX PO (12:13)
[2018-10-17] MEDS ORDERED: AMOX500C2 PO (12:13)
[2018-10-17] MEDS ORDERED: BUDE0.5A3 NEB (12:13)
[2018-10-17] MEDS ORDERED: AUD NEB (12:13)
[2018-10-17] MEDS ORDERED: IPRNEB NEB (12:15)
== END 2018-10-17 14:15 | DRG 885 ==
LOC: EMS 07:48 → 3EC 21:13
PROVIDERS: ADMIT Psychiatry & Neurology Psychiatry; ATTEND Psychiatry & Neurology Psychiatry
DX: F25.9 Schizoaffective disorder, unspecified (principal); J44.1 Chronic obstructive pulmonary disease with (acute) exacerbation; N39.0 Urinary tract infection, site not specified; N40.0 Benign prostatic hyperplasia without lower urinary tract symptoms; E78.5 Hyperlipidemia, unspecified; K21.9 Gastro-esophageal reflux disease without esophagitis; I48.91 Unspecified atrial fibrillation; F10.10 Alcohol abuse, uncomplicated; Y90.9 Presence of alcohol in blood, level not specified; D64.9 Anemia, unspecified; D69.6 Thrombocytopenia, unspecified; B19.20 Unspecified viral hepatitis C without hepatic coma; I10 Essential (primary) hypertension; F17.200 Nicotine dependence, unspecified, uncomplicated; Z59.0 Homelessness; Z82.49 Family history of ischemic heart disease and other diseases of the circulatory system; Z86.73 Personal history of transient ischemic attack (TIA), and cerebral infarction without residual deficits; D72.829 Elevated white blood cell count, unspecified; E83.42 Hypomagnesemia; F32.9 Major depressive disorder, single episode, unspecified; F12.90 Cannabis use, unspecified, uncomplicated; B95.2 Enterococcus as the cause of diseases classified elsewhere; F17.210 Nicotine dependence, cigarettes, uncomplicated; R45.850 Homicidal ideations; Z91.19 Patient's noncompliance with other medical treatment and regimen
CPT/HCPCS: 36600; 82805; 83735; 87081; 87086; 93041; 94640; G0480

== ENCOUNTER 2018-10-22 11:28 | Inpatient (IN) | payer MEDICARE, MEDICAID ==
[~2018-10-22] VITALS: Ht 170.2 cm; Wt 96.3 kg
[~2018-10-22 11:28] MED LIST changes: -AMLO-512 PO; +AMLO10TA7 PO; +AMOX500C2 PO; -ATOR10TA84 PO; +ATOR20TA86 PO; +AUD NEB; +BUDE0.5A3 NEB; +IPRNEB NEB; +MAGOX PO; +RISP2 PO
[2018-10-22 12:28] LABS: BASOPHILS % (AUTO) 0.5 % (0.0-2.0); EOSINOPHILS % (AUTO) 0.7 % (1.0-6.0); HEMATOCRIT 39.2 % (41-53); LYMPHOCYTES # (AUTO) 2.3 K/uL (1.0-4.8); LYMPHOCYTES % (AUTO) 25.2 % (22.0-44.0); MEAN CORPUSCULAR HEMOGLOBIN 34.1 pg (26.0-34.0); MEAN CORPUSCULAR HGB CONC 33.2 G/dL (31.0-37.0); MEAN CORPUSCULAR VOLUME 103 fL (80-100); MONOCYTES # (AUTO) 0.9 K/uL (0.1-1.0); MONOCYTES % (AUTO) 9.9 % (2.0-9.0); NEUTROPHILS # (AUTO) 5.7 K/uL (1.8-7.7); NEUTROPHILS % (AUTO) 63.7 % (40.0-70.0); PLATELET COUNT (AUTO) 159 K/uL (150-450); RED BLOOD CELL COUNT(AUTO) 3.82 MIL/uL (4.50-5.90); RED CELL DISTRIBUTION WIDTH 14.6 % (11.5-14.5)
[2018-10-22 12:38] LABS: ANION GAP 17 mmol/L (8-16); CALCIUM, TOTAL 8.9 mg/dL (8.8-10.5); CARBON DIOXIDE 20 mmol/L (22-29); CHLORIDE 102 mmol/L (98-107); CREATININE 1.11 mg/dL (0.60-1.30); GLOMERULAR FILTR. RATE CALC > 60 mL/min (>60); GLUCOSE,RANDOM 75 mg/dL (70-110); POTASSIUM 4.1 mmol/L (3.5-5.1); SODIUM SERUM 139 mmol/L (136-145); UREA NITROGEN, BLOOD 33 mg/dL (7-18)
[2018-10-22 12:44] LABS: ALANINE AMINOTRANSFERASE 118 U/L (12-78); ALBUMIN 2.9 g/dL (3.4-5.0); ALKALINE PHOSPHATASE 158 U/L (46-116); ASPARTATE AMINOTRANSFERASE 187 U/L (15-37); BILIRUBIN,TOTAL 1.3 mg/dL (0.1-1.0); TOTAL PROTEIN, SERUM 7.4 g/dL (6.4-8.2)
[2018-10-22] MEDS ORDERED: HALOPERIDOL LACTATE 5 MG/ML VIAL IM ONE (12:45)
[2018-10-22] MEDS ORDERED: LORazepam 2 MG/ML VIAL IM ONE (12:45)
[2018-10-22] MEDS ORDERED: LORazepam 2 MG TABLET PO ONE (13:00)
[2018-10-22] MEDS ORDERED: HALOPERIDOL 5 MG TABLET PO ONE (13:00)
[2018-10-22 16:43] LABS: AMPHET/METH SCREEN,URINE NEGATIVE (NEGATIVE); BARBITURATE SCREEN, URINE NEGATIVE (NEGATIVE); BENZODIAZEPINES SCREEN,URINE NEGATIVE (NEGATIVE); CANNABINOID SCREEN,URINE NEGATIVE (NEGATIVE); COCAINE SCREEN,URINE NEGATIVE (NEGATIVE); METHADONE SCREEN, URINE NEGATIVE (NEGATIVE); OPIATE SCREEN,URINE NEGATIVE (NEGATIVE)
[2018-10-22 16:44] LABS: PHENCYCLIDINE SCREEN,URINE NEGATIVE (NEGATIVE)
[2018-10-22 17:50] VITALS: BP 132/80
[2018-10-22] MEDS ORDERED: BUDESONIDE 0.5 MG/2 ML NEB SOLUTION NEB PRN (19:15)
[2018-10-22] MEDS: LORazepam 2 MG TABLET PO PRN (19:15)
[2018-10-22] MEDS ORDERED: IPRATROPIUM BROMIDE 0.5 MG/2.5 ML NEB SOLUTION NEB PRN (19:15)
[2018-10-22] MEDS ORDERED: ALBUTEROL SULFATE 2.5 MG/0.5 ML NEB SOLUTION NEB PRN (19:15)
[2018-10-23 00:48] VITALS: BP 138/89
[2018-10-23] MEDS: LORazepam 2 MG TABLET PO PRN ×3 (00:49→19:40)
[2018-10-23] MEDS: HALOPERIDOL 5 MG TABLET PO PRN (04:42)
[2018-10-23] MEDS: ATORVASTATIN CALCIUM 20 MG TABLET PO SCH (09:18)
[2018-10-23] MEDS: CARVEDILOL 6.25 MG TABLET PO SCH ×2 (09:18→16:09)
[2018-10-23] MEDS: MAGNESIUM OXIDE 400 MG TABLET PO SCH ×2 (09:18→16:09)
[2018-10-23] MEDS: TAMSULOSIN HCL 0.4 MG CAPSULE PO SCH (09:18)
[2018-10-23] MEDS: AmLODIPine BESYLATE 5 MG TABLET PO SCH (09:19)
[2018-10-23] MEDS: RisperiDONE 2 MG TABLET PO SCH ×2 (09:19→16:09)
[2018-10-23] MEDS: MULTIVITAMINS WITH MINERALS, THERAPEUTIC TABLET PO SCH (09:20)
[2018-10-23 13:10] VITALS: BP 140/79
[2018-10-23] MEDS ORDERED: AMLO5TAB9 PO (15:49)
[2018-10-23] MEDS: NICOTINE 21 MG/24 HOUR PATCH TD SCH (15:50)
[2018-10-23 16:10] VITALS: BP 145/70
[2018-10-23] MEDS: TIOTROPIUM BROMIDE 18 MCG/INH HANDIHALER [5] IH SCH (17:17)
[2018-10-23] MEDS: BUDESONIDE 0.5 MG/2 ML NEB SOLUTION NEB SCH (21:00)
[2018-10-24] MEDS: LORazepam 2 MG TABLET PO PRN (01:24)
[2018-10-24 08:07] VITALS: BP 148/92
[2018-10-24 10:10] VITALS: BP 114/83
[2018-10-24] MEDS: CARVEDILOL 6.25 MG TABLET PO SCH ×2 (10:24→16:15)
[2018-10-24] MEDS: MULTIVITAMINS WITH MINERALS, THERAPEUTIC TABLET PO SCH (10:24)
[2018-10-24] MEDS: AmLODIPine BESYLATE 5 MG TABLET PO SCH (10:24)
[2018-10-24] MEDS: RisperiDONE 2 MG TABLET PO SCH ×2 (10:24→16:15)
[2018-10-24] MEDS: MAGNESIUM OXIDE 400 MG TABLET PO SCH ×2 (10:24→16:15)
[2018-10-24] MEDS: TAMSULOSIN HCL 0.4 MG CAPSULE PO SCH (10:24)
[2018-10-24] MEDS: TIOTROPIUM BROMIDE 18 MCG/INH HANDIHALER [5] IH SCH (10:24)
[2018-10-24] MEDS: NICOTINE 21 MG/24 HOUR PATCH TD SCH (10:25)
[2018-10-24] MEDS: ATORVASTATIN CALCIUM 20 MG TABLET PO SCH (10:25)
[2018-10-24] MEDS: BUDESONIDE 0.5 MG/2 ML NEB SOLUTION NEB SCH ×2 (11:35→20:47)
[2018-10-24 16:31] VITALS: BP 132/69
[2018-10-24] MEDS: ZOLPIDEM TARTRATE 10 MG TABLET PO PRN (20:56)
[2018-10-25] MEDS: AmLODIPine BESYLATE 5 MG TABLET PO SCH (08:26)
[2018-10-25] MEDS: RisperiDONE 2 MG TABLET PO SCH ×2 (08:26→17:09)
[2018-10-25] MEDS: ATORVASTATIN CALCIUM 20 MG TABLET PO SCH (08:26)
[2018-10-25] MEDS: FUROSEMIDE 20 MG TABLET PO SCH (08:26)
[2018-10-25] MEDS: TIOTROPIUM BROMIDE 18 MCG/INH HANDIHALER [5] IH SCH (08:26)
[2018-10-25] MEDS: MAGNESIUM OXIDE 400 MG TABLET PO SCH ×2 (08:26→17:10)
[2018-10-25] MEDS: POTASSIUM CHLORIDE 10 MEQ ER TABLET PO SCH (08:27)
[2018-10-25] MEDS: TAMSULOSIN HCL 0.4 MG CAPSULE PO SCH (08:27)
[2018-10-25] MEDS: CARVEDILOL 6.25 MG TABLET PO SCH ×2 (08:27→17:08)
[2018-10-25] MEDS: MULTIVITAMINS WITH MINERALS, THERAPEUTIC TABLET PO SCH (08:27)
[2018-10-25] MEDS: NICOTINE 21 MG/24 HOUR PATCH TD SCH (08:39)
[2018-10-25 09:00] VITALS: BP 114/66
[2018-10-25] MEDS: HALOPERIDOL 5 MG TABLET PO PRN ×2 (09:22→21:10)
[2018-10-25] MEDS: BUDESONIDE 0.5 MG/2 ML NEB SOLUTION NEB SCH ×2 (11:05→20:21)
[2018-10-25 16:30] VITALS: BP 138/72
[2018-10-25] MEDS: LORazepam 2 MG TABLET PO PRN ×2 (17:09→21:10)
[2018-10-25] MEDS: ZOLPIDEM TARTRATE 10 MG TABLET PO PRN (22:46)
[2018-10-26] MEDS: HALOPERIDOL 5 MG TABLET PO PRN ×2 (01:19→18:10)
[2018-10-26] MEDS: LORazepam 2 MG TABLET PO PRN ×3 (01:19→18:12)
[2018-10-26 08:45] VITALS: BP 145/95
[2018-10-26] MEDS: RisperiDONE 2 MG TABLET PO SCH ×2 (09:28→16:25)
[2018-10-26] MEDS: CARVEDILOL 6.25 MG TABLET PO SCH ×2 (09:28→16:25)
[2018-10-26] MEDS: TAMSULOSIN HCL 0.4 MG CAPSULE PO SCH (09:28)
[2018-10-26] MEDS: POTASSIUM CHLORIDE 10 MEQ ER TABLET PO SCH (09:29)
[2018-10-26] MEDS: MULTIVITAMINS WITH MINERALS, THERAPEUTIC TABLET PO SCH (09:29)
[2018-10-26] MEDS: ATORVASTATIN CALCIUM 20 MG TABLET PO SCH (09:29)
[2018-10-26] MEDS: AmLODIPine BESYLATE 5 MG TABLET PO SCH (09:29)
[2018-10-26] MEDS: FUROSEMIDE 20 MG TABLET PO SCH (09:31)
[2018-10-26] MEDS: MAGNESIUM OXIDE 400 MG TABLET PO SCH ×2 (09:31→16:25)
[2018-10-26] MEDS: NICOTINE 21 MG/24 HOUR PATCH TD SCH (09:43)
[2018-10-26] MEDS: TIOTROPIUM BROMIDE 18 MCG/INH HANDIHALER [5] IH SCH (09:47)
[2018-10-26] MEDS: BUDESONIDE 0.5 MG/2 ML NEB SOLUTION NEB SCH ×2 (10:02→22:59)
[2018-10-26 16:14] VITALS: BP 141/73
[2018-10-26] MEDS: ZOLPIDEM TARTRATE 10 MG TABLET PO PRN (20:39)
[2018-10-27] MEDS: HALOPERIDOL 5 MG TABLET PO PRN (00:36)
[2018-10-27] MEDS: LORazepam 2 MG TABLET PO PRN ×3 (00:36→21:05)
[2018-10-27 00:37] VITALS: BP 139/85
[2018-10-27 09:00] VITALS: BP 124/60
[2018-10-27] MEDS: FUROSEMIDE 20 MG TABLET PO SCH ×2 (09:39→17:25)
[2018-10-27] MEDS: CARVEDILOL 6.25 MG TABLET PO SCH ×2 (09:39→16:13)
[2018-10-27] MEDS: POTASSIUM CHLORIDE 10 MEQ ER TABLET PO SCH (09:39)
[2018-10-27] MEDS: TIOTROPIUM BROMIDE 18 MCG/INH HANDIHALER [5] IH SCH (09:39)
[2018-10-27] MEDS: RisperiDONE 2 MG TABLET PO SCH ×2 (09:40→16:13)
[2018-10-27] MEDS: MAGNESIUM OXIDE 400 MG TABLET PO SCH ×2 (09:40→16:13)
[2018-10-27] MEDS: MULTIVITAMINS WITH MINERALS, THERAPEUTIC TABLET PO SCH (09:41)
[2018-10-27] MEDS: AmLODIPine BESYLATE 5 MG TABLET PO SCH (09:41)
[2018-10-27] MEDS: ATORVASTATIN CALCIUM 20 MG TABLET PO SCH (09:42)
[2018-10-27] MEDS: NICOTINE 21 MG/24 HOUR PATCH TD SCH (09:44)
[2018-10-27] MEDS: TAMSULOSIN HCL 0.4 MG CAPSULE PO SCH (09:46)
[2018-10-27] MEDS: BUDESONIDE 0.5 MG/2 ML NEB SOLUTION NEB SCH ×2 (12:29→20:26)
[2018-10-27 16:10] VITALS: BP 118/75
[2018-10-27] MEDS: ZOLPIDEM TARTRATE 10 MG TABLET PO PRN (21:05)
[2018-10-28 02:04] VITALS: BP 128/62
[2018-10-28] MEDS: LORazepam 2 MG TABLET PO PRN (03:01)
[2018-10-28 06:47] LABS: ALANINE AMINOTRANSFERASE 91 U/L (12-78); ALBUMIN 2.7 g/dL (3.4-5.0); ALKALINE PHOSPHATASE 136 U/L (46-116); ANION GAP 8 mmol/L (8-16); ASPARTATE AMINOTRANSFERASE 93 U/L (15-37); BILIRUBIN,TOTAL 1.2 mg/dL (0.1-1.0); CALCIUM, TOTAL 9.1 mg/dL (8.8-10.5); CARBON DIOXIDE 29 mmol/L (22-29); CHLORIDE 103 mmol/L (98-107); GLOMERULAR FILTR. RATE CALC > 60 mL/min (>60); GLUCOSE,RANDOM 91 mg/dL (70-110); POTASSIUM 3.8 mmol/L (3.5-5.1); SODIUM SERUM 140 mmol/L (136-145); TOTAL PROTEIN, SERUM 6.4 g/dL (6.4-8.2); UREA NITROGEN, BLOOD 22 mg/dL (7-18)
[2018-10-28 06:48] LABS: B-TYPE NATRIURETIC PEPTIDE 459 pg/mL (0-100)
[2018-10-28 08:10] VITALS: BP 113/67
[2018-10-28] MEDS: AmLODIPine BESYLATE 5 MG TABLET PO SCH (08:20)
[2018-10-28] MEDS: POTASSIUM CHLORIDE 10 MEQ ER TABLET PO SCH (08:21)
[2018-10-28] MEDS: MAGNESIUM OXIDE 400 MG TABLET PO SCH ×2 (08:21→16:38)
[2018-10-28] MEDS: FUROSEMIDE 20 MG TABLET PO SCH ×2 (08:21→16:38)
[2018-10-28] MEDS: CARVEDILOL 6.25 MG TABLET PO SCH ×2 (08:22→16:38)
[2018-10-28] MEDS: RisperiDONE 2 MG TABLET PO SCH ×2 (08:22→16:38)
[2018-10-28] MEDS: ATORVASTATIN CALCIUM 20 MG TABLET PO SCH (08:22)
[2018-10-28] MEDS: TAMSULOSIN HCL 0.4 MG CAPSULE PO SCH (08:22)
[2018-10-28] MEDS: MULTIVITAMINS WITH MINERALS, THERAPEUTIC TABLET PO SCH (08:22)
[2018-10-28] MEDS: TIOTROPIUM BROMIDE 18 MCG/INH HANDIHALER [5] IH SCH (08:24)
[2018-10-28] MEDS: NICOTINE 21 MG/24 HOUR PATCH TD SCH (08:31)
[2018-10-28] MEDS: BUDESONIDE 0.5 MG/2 ML NEB SOLUTION NEB SCH ×2 (09:39→20:55)
[2018-10-28 16:50] VITALS: BP 105/61
[2018-10-28] MEDS: ZOLPIDEM TARTRATE 10 MG TABLET PO PRN (20:27)
[2018-10-29] MEDS: LORazepam 2 MG TABLET PO PRN (05:47)
[2018-10-29] MEDS: MAGNESIUM OXIDE 400 MG TABLET PO SCH (08:18)
[2018-10-29] MEDS: TAMSULOSIN HCL 0.4 MG CAPSULE PO SCH (08:18)
[2018-10-29] MEDS: CARVEDILOL 6.25 MG TABLET PO SCH (08:18)
[2018-10-29] MEDS: POTASSIUM CHLORIDE 10 MEQ ER TABLET PO SCH (08:18)
[2018-10-29] MEDS: FUROSEMIDE 20 MG TABLET PO SCH (08:18)
[2018-10-29] MEDS: MULTIVITAMINS WITH MINERALS, THERAPEUTIC TABLET PO SCH (08:19)
[2018-10-29] MEDS: AmLODIPine BESYLATE 5 MG TABLET PO SCH (08:19)
[2018-10-29] MEDS: RisperiDONE 2 MG TABLET PO SCH (08:19)
[2018-10-29] MEDS: ATORVASTATIN CALCIUM 20 MG TABLET PO SCH (08:19)
[2018-10-29] MEDS: TIOTROPIUM BROMIDE 18 MCG/INH HANDIHALER [5] IH SCH (08:25)
[2018-10-29] MEDS: NICOTINE 21 MG/24 HOUR PATCH TD SCH (08:27)
[2018-10-29 11:05] VITALS: BP 131/68
[2018-10-29] MEDS ORDERED: TIOT185 IH (12:08)
[2018-10-29] MEDS ORDERED: KDUR10 PO (12:08)
[2018-10-29] MEDS ORDERED: FURO20 PO (12:08)
== END 2018-10-29 14:10 | DRG 885 ==
LOC: EMS 11:28 → 3EC 17:15
PROVIDERS: ADMIT Psychiatry & Neurology Psychiatry; ATTEND Psychiatry & Neurology Psychiatry
DX: F25.1 Schizoaffective disorder, depressive type (principal); J44.1 Chronic obstructive pulmonary disease with (acute) exacerbation; R45.851 Suicidal ideations; I69.351 Hemiplegia and hemiparesis following cerebral infarction affecting right dominant side; B19.20 Unspecified viral hepatitis C without hepatic coma; D69.59 Other secondary thrombocytopenia; E78.5 Hyperlipidemia, unspecified; E83.42 Hypomagnesemia; F12.90 Cannabis use, unspecified, uncomplicated; F17.210 Nicotine dependence, cigarettes, uncomplicated; I11.0 Hypertensive heart disease with heart failure; I48.91 Unspecified atrial fibrillation; F10.20 Alcohol dependence, uncomplicated; R79.89 Other specified abnormal findings of blood chemistry; I50.9 Heart failure, unspecified; F11.90 Opioid use, unspecified, uncomplicated; F32.9 Major depressive disorder, single episode, unspecified; K21.9 Gastro-esophageal reflux disease without esophagitis; K74.60 Unspecified cirrhosis of liver; N40.0 Benign prostatic hyperplasia without lower urinary tract symptoms; Z82.49 Family history of ischemic heart disease and other diseases of the circulatory system; Z91.19 Patient's noncompliance with other medical treatment and regimen; Z88.5 Allergy status to narcotic agent; Z79.899 Other long term (current) drug therapy
CPT/HCPCS: 87081; 93005; 93306; 94640; G0480; J1630; J2060

== ENCOUNTER 2019-02-12 10:27 | Inpatient (IN) | payer MEDICARE, OTHER ==
[~2019-02-12] VITALS: Ht 180.3 cm; Wt 108.0 kg
[~2019-02-12 10:27] MED LIST changes: -AMLO10TA7 PO; +AMLO5TAB9 PO; -AMOX500C2 PO; -AUD NEB; +FURO20 PO; -IPRNEB NEB; +KDUR10 PO; +TIOT185 IH
[2019-02-12] MEDS ORDERED: IPRA4AER IH (10:41)
[2019-02-12] MEDS ORDERED: RIFAX550 PO (10:41)
[2019-02-12] MEDS ORDERED: FURO40 PO (10:41)
[2019-02-12] MEDS ORDERED: LACT30L PO (10:41)
[2019-02-12] MEDS ORDERED: AMLO10TA7 PO (10:41)
[2019-02-12] MEDS ORDERED: FOLI1 PO (10:41)
[2019-02-12] MEDS ORDERED: ATOR10TA84 PO (10:41)
[2019-02-12] MEDS ORDERED: SODIUM CHLORIDE 0.9% 1,000 ML IV ONE (11:13)
[2019-02-12] MEDS ORDERED: IPRATROPIUM BROMIDE 0.5 MG/2.5 ML NEB SOLUTION NEB ONE (11:15)
[2019-02-12] MEDS ORDERED: ALBUTEROL SULFATE 5 MG/ML 20 ML NEB SOLN [BULK] NEB ONE (11:15)
[2019-02-12] MEDS ORDERED: MethylPREDNISolone SOD SUCC 125 MG/2 ML VIAL IVP ONE (11:15)
[2019-02-12 11:22] LABS: BASOPHILS % (AUTO) 0.6 % (0.0-2.0); EOSINOPHILS % (AUTO) 2.9 % (1.0-6.0); HEMATOCRIT 31.2 % (41-53); HEMOGLOBIN 10.5 g/dL (13.5-17.5); LYMPHOCYTES # (AUTO) 0.9 K/uL (1.0-4.8); LYMPHOCYTES % (AUTO) 15.1 % (22.0-44.0); MEAN CORPUSCULAR HGB CONC 33.6 G/dL (31.0-37.0); MEAN CORPUSCULAR VOLUME 95 fL (80-100); MONOCYTES # (AUTO) 0.5 K/uL (0.1-1.0); MONOCYTES % (AUTO) 8.8 % (2.0-9.0); NEUTROPHILS # (AUTO) 4.3 K/uL (1.8-7.7); NEUTROPHILS % (AUTO) 72.6 % (40.0-70.0); PLATELET COUNT (AUTO) 121 K/uL (150-450); RED BLOOD CELL COUNT(AUTO) 3.27 MIL/uL (4.50-5.90); RED CELL DISTRIBUTION WIDTH 14.7 % (11.5-14.5)
[2019-02-12] MEDS ORDERED: LEVOFLOXACIN 500 MG/D5% WATER 100 ML IV ONE (11:45)
[2019-02-12] MEDS ORDERED: PIPERACILLIN/TAZO 3.375 GM/D5W 50 ML IV ONE (11:45)
[2019-02-12 11:49] LABS: INR 1.3 (0.9-1.1); PROTHROMBIN TIME 13.2 SEC (9.4-11.6)
[2019-02-12] MEDS ORDERED: 0.9% SODIUM CHLORIDE 15 ML NEB SOLUTION NEB ONE (11:49)
[2019-02-12 12:02] LABS: ANION GAP 3 mmol/L (8-16); CALCIUM, TOTAL 8.9 mg/dL (8.8-10.5); CARBON DIOXIDE 39 mmol/L (22-29); CHLORIDE 100 mmol/L (98-107); CREATININE 0.85 mg/dL (0.60-1.30); GLOMERULAR FILTR. RATE CALC > 60 mL/min (>60); GLUCOSE,RANDOM 145 mg/dL (70-110); POTASSIUM 3.3 mmol/L (3.5-5.1); SODIUM SERUM 142 mmol/L (136-145); UREA NITROGEN, BLOOD 22 mg/dL (7-18)
[2019-02-12] MEDS ORDERED: FUROSEMIDE 40 MG/4 ML VIAL IVP ONE (12:15)
[2019-02-12 12:29] LABS: ALANINE AMINOTRANSFERASE 62 U/L (12-78); ALBUMIN 2.9 g/dL (3.4-5.0); ALKALINE PHOSPHATASE 143 U/L (46-116); ASPARTATE AMINOTRANSFERASE 121 U/L (15-37); BILIRUBIN,TOTAL 1.8 mg/dL (0.1-1.0); CREATINE KINASE, TOTAL ONLY 127 U/L (39-308); THYROID STIMULATING HORMONE 7.33 uIU/mL (0.36-3.74); TOTAL PROTEIN, SERUM 8.3 g/dL (6.4-8.2)
[2019-02-12] MEDS ORDERED: LORazepam 2 MG/ML VIAL IVP ONE (13:00)
[2019-02-12 13:28] LABS: ABG A-A DIFF O2 100.3 mmHg (10-20.0); ABG METHEMOGLOBIN 0.2 % (0.0-1.5); ABG OXYGEN CONTENT 11.3 mL/dL (15.0-23.0); ABG OXYGEN SATURATION 98.6 % (95.0-98.0); ABG OXYHEMOGLOBIN 92.1 % (94.0-100.0); ABG PCO2 38 mmHg (35-45); ABG PH 7.462 (7.35-7.450); ABG TOTAL HEMOGLOBIN 8.5 G/dL (12.0-18.0); PO2, ARTERIAL BG 141.1 mmHg (79.0-87.0); SOURCE, BLOOD GAS ARTERIAL; TEMPERATURE, FAHRENHEIT, BG 98.1 FAHREN (96.0-98.6)
[2019-02-12 13:29] LABS: ABG CARBOXYHEMOGLOBIN 6.4 % (0.0-1.5); O2 DEVICE,BLOOD GAS BIPAP (ROOM AIR); SITE, BLOOD GAS RT RADIAL
[2019-02-12 14:15] LABS: APPEARANCE,URINE CLOUDY (CLEAR); BILIRUBIN,URINE NEGATIVE (NEGATIVE); GLUCOSE, URINE (UA) NEGATIVE (NEGATIVE); KETONES,URINE NEGATIVE (NEGATIVE); LEUKOCYTE ESTERASE ,URINE SMALL (NEGATIVE); NITRATE,URINE POSITIVE (NEGATIVE); OCCULT BLOOD,URINE SMALL (NEGATIVE); PH,URINE 5.5 (5.0-8.0); PROTEIN,URINE POS 1+ (NEGATIVE)
[2019-02-12 14:18] LABS: INFLUENZA TYPE A NEGATIVE FOR TYPE A (NEGATIVE)
[2019-02-12 14:19] LABS: INFLUENZA TYPE B NEGATIVE FOR TYPE B (NEGATIVE)
[2019-02-12 14:27] LABS: BACTERIA,URINE Many /HPF (None Seen); RBC,URINE 0-2 /HPF (0-2)
[2019-02-12 14:28] LABS: SQUAMOUS EPITHELIAL CELL,UR Rare /LPF (None Seen)
[2019-02-12 16:48] VITALS: BP 112/52
[2019-02-12] MEDS: LACTULOSE 20 GM/30 ML SOLUTION UDCUP PO SCH ×3 (18:30→23:37)
[2019-02-12 20:02] VITALS: BP 101/59
[2019-02-12] MEDS ORDERED: 0.9% SODIUM CHLORIDE 10 ML SYRINGE IVP PRN (21:15)
[2019-02-12] MEDS ORDERED: IPRATROPIUM BROMIDE 0.5 MG/2.5 ML NEB SOLUTION NEB PRN (21:15)
[2019-02-12] MEDS ORDERED: ALBUTEROL SULFATE 2.5 MG/0.5 ML NEB SOLUTION NEB PRN (21:15)
[2019-02-12] MEDS ORDERED: ONDANSETRON HCL 4 MG/2 ML VIAL IVP PRN (21:15)
[2019-02-12] MEDS ORDERED: POTASSIUM CHLORIDE 20 MEQ ER TABLET PO PRN (21:30)
[2019-02-12] MEDS ORDERED: MAGNESIUM OXIDE 400 MG TABLET PO PRN (21:30)
[2019-02-12] MEDS ORDERED: MAGNESIUM SULFATE 2 GM/WATER 50 ML IV PRN (21:30)
[2019-02-12] MEDS ORDERED: MAGNESIUM SULFATE 4 GM/WATER 100 ML IV PRN (21:30)
[2019-02-12] MEDS ORDERED: SODIUM CHLORIDE 0.9% 500 ML IV ONE (22:24)
[2019-02-12] MEDS: DOXYCYCLINE HYCLATE 100 MG in DEXTROSE 5%-WATER 100 ML IV SCH (22:32)
[2019-02-12] MEDS: CefTRIAXone SODIUM 2 GM in DEXTROSE 5%-WATER 50 ML IV SCH (22:33)
[2019-02-13] VITALS (7 sets, daily range): BP systolic 83–137; BP diastolic 46–72
[2019-02-13] MEDS: ALBUTEROL SULFATE 2.5 MG/0.5 ML NEB SOLUTION NEB SCH ×4 (01:08→20:13)
[2019-02-13] MEDS: IPRATROPIUM BROMIDE 0.5 MG/2.5 ML NEB SOLUTION NEB SCH ×4 (01:08→20:13)
[2019-02-13 05:59] LABS: BASOPHILS % (AUTO) 0.1 % (0.0-2.0); EOSINOPHILS % (AUTO) 0.1 % (1.0-6.0); HEMATOCRIT 33.2 % (41-53); HEMOGLOBIN 10.9 g/dL (13.5-17.5); LYMPHOCYTES # (AUTO) 0.6 K/uL (1.0-4.8); LYMPHOCYTES % (AUTO) 13.6 % (22.0-44.0); MEAN CORPUSCULAR HEMOGLOBIN 31.3 pg (26.0-34.0); MEAN CORPUSCULAR HGB CONC 32.7 G/dL (31.0-37.0); MEAN CORPUSCULAR VOLUME 96 fL (80-100); MONOCYTES # (AUTO) 0.3 K/uL (0.1-1.0); MONOCYTES % (AUTO) 6.1 % (2.0-9.0); NEUTROPHILS # (AUTO) 3.3 K/uL (1.8-7.7); NEUTROPHILS % (AUTO) 80.1 % (40.0-70.0); PLATELET COUNT (AUTO) 96 K/uL (150-450); RED BLOOD CELL COUNT(AUTO) 3.47 MIL/uL (4.50-5.90)
[2019-02-13 06:19] LABS: ANION GAP 2 mmol/L (8-16); CALCIUM, TOTAL 8.8 mg/dL (8.8-10.5); CARBON DIOXIDE 39 mmol/L (22-29); CHLORIDE 103 mmol/L (98-107); CREATININE 1.07 mg/dL (0.60-1.30); GLOMERULAR FILTR. RATE CALC > 60 mL/min (>60); GLUCOSE,RANDOM 121 mg/dL (70-110); PHOSPHORUS 4.7 mg/dL (2.5-4.9); SODIUM SERUM 144 mmol/L (136-145); THYROID STIMULATING HORMONE 2.15 uIU/mL (0.36-3.74); UREA NITROGEN, BLOOD 25 mg/dL (7-18)
[2019-02-13] MEDS: LACTULOSE 20 GM/30 ML SOLUTION UDCUP PO SCH ×3 (06:37→18:19)
[2019-02-13 06:38] LABS: B-TYPE NATRIURETIC PEPTIDE 1340 pg/mL (0-100)
[2019-02-13] MEDS: PANTOPRAZOLE SODIUM 40 MG/VIAL IVP SCH (08:15)
[2019-02-13] MEDS: DOXYCYCLINE HYCLATE 100 MG in DEXTROSE 5%-WATER 100 ML IV SCH ×2 (08:16→20:04)
[2019-02-13] MEDS: POTASSIUM CHL 10 MEQ/WATER 50 ML IV PRN ×4 (08:18→13:05)
[2019-02-13] MEDS ORDERED: MethylPREDNISolone SOD SUCC 40 MG/ML VIAL IVP SCH (09:00)
[2019-02-13] MEDS ORDERED: FUROSEMIDE 40 MG/4 ML VIAL IVP SCH ×2 (11:15→21:00)
[2019-02-13 12:10] LABS: ABG A-A DIFF O2 103.3 mmHg (10-20.0); ABG BASE EXCESS 13.5 mmol/L (-2.0-3.0); ABG CARBOXYHEMOGLOBIN 0.8 % (0.0-1.5); ABG HCO3 35.4 mmol/L (22.0-26.0); ABG METHEMOGLOBIN 0.3 % (0.0-1.5); ABG OXYGEN SATURATION 90.6 % (95.0-98.0); ABG OXYHEMOGLOBIN 89.6 % (94.0-100.0); ABG PCO2 52 mmHg (35-45); ABG TOTAL HEMOGLOBIN 11.9 G/dL (12.0-18.0); PO2, ARTERIAL BG 63.7 mmHg (79.0-87.0); SOURCE, BLOOD GAS ARTERIAL; TEMPERATURE, FAHRENHEIT, BG 98.6 FAHREN (96.0-98.6)
[2019-02-13 12:11] LABS: O2 DEVICE,BLOOD GAS CANNULA (ROOM AIR); SITE, BLOOD GAS LFT RADIAL
[2019-02-13] MEDS: TraMADol HCL 50 MG TABLET PO PRN ×2 (12:35→20:04)
[2019-02-13] MEDS: MethylPREDNISolone SOD SUCC 125 MG/2 ML VIAL IVP SCH (15:41)
[2019-02-13] MEDS: METOPROLOL TARTRATE 25 MG TABLET PO SCH (20:00)
[2019-02-13] MEDS: RIFAXIMIN 550 MG TABLET PO SCH (20:03)
[2019-02-13] MEDS: CefTRIAXone SODIUM 2 GM in DEXTROSE 5%-WATER 50 ML IV SCH (20:04)
[2019-02-13] MEDS: ATORVASTATIN CALCIUM 10 MG TABLET PO SCH (20:04)
[2019-02-13] MEDS: ZOLPIDEM TARTRATE 5 MG TABLET PO PRN (22:28)
[2019-02-14] MEDS: MethylPREDNISolone SOD SUCC 125 MG/2 ML VIAL IVP SCH ×4 (00:02→23:37)
[2019-02-14] MEDS: LACTULOSE 20 GM/30 ML SOLUTION UDCUP PO SCH ×5 (00:02→23:37)
[2019-02-14] MEDS: IPRATROPIUM BROMIDE 0.5 MG/2.5 ML NEB SOLUTION NEB SCH ×4 (02:40→20:07)
[2019-02-14] MEDS: ALBUTEROL SULFATE 2.5 MG/0.5 ML NEB SOLUTION NEB SCH ×4 (02:40→20:07)
[2019-02-14 04:26] VITALS: BP 120/75
[2019-02-14 07:20] VITALS: BP 111/53
[2019-02-14] MEDS: TAMSULOSIN HCL 0.4 MG CAPSULE PO SCH (08:44)
[2019-02-14] MEDS: METOPROLOL TARTRATE 25 MG TABLET PO SCH ×2 (08:44→21:16)
[2019-02-14] MEDS: RIFAXIMIN 550 MG TABLET PO SCH ×2 (08:44→21:16)
[2019-02-14] MEDS ORDERED: FUROSEMIDE 40 MG/4 ML VIAL IVP SCH (09:00)
[2019-02-14] MEDS ORDERED: AmLODIPine BESYLATE 10 MG TABLET PO SCH (09:00)
[2019-02-14] MEDS ORDERED: CARVEDILOL 6.25 MG TABLET PO SCH (09:00)
[2019-02-14 09:20] LABS: CALCIUM, TOTAL 8.5 mg/dL (8.8-10.5); CREATININE 1.31 mg/dL (0.60-1.30); POTASSIUM 3.7 mmol/L (3.5-5.1)
[2019-02-14] MEDS: PANTOPRAZOLE SODIUM 40 MG/VIAL IVP SCH (09:55)
[2019-02-14] MEDS: DOXYCYCLINE HYCLATE 100 MG in DEXTROSE 5%-WATER 100 ML IV SCH ×2 (09:55→21:16)
[2019-02-14] MEDS ORDERED: SODIUM CHLORIDE 0.9% 1,000 ML IV ONE (10:30)
[2019-02-14 11:05] VITALS: BP 105/48
[2019-02-14 13:29] LABS: MAGNESIUM 1.9 mg/dL (1.80-2.40)
[2019-02-14] MEDS ORDERED: MAGNESIUM SULFATE 1 GM in DEXTROSE 5%-WATER 50 ML IV ONE (14:00)
[2019-02-14] MEDS ORDERED: POTASSIUM CHLORIDE 10 MEQ ER TABLET PO ONE (14:00)
[2019-02-14 15:15] VITALS: BP 117/65
[2019-02-14] MEDS: CefTRIAXone SODIUM 2 GM in DEXTROSE 5%-WATER 50 ML IV SCH (19:47)
[2019-02-14 20:04] VITALS: BP 124/70
[2019-02-14] MEDS: ATORVASTATIN CALCIUM 10 MG TABLET PO SCH (21:16)
[2019-02-14] MEDS: ZOLPIDEM TARTRATE 5 MG TABLET PO PRN (23:37)
[2019-02-15] VITALS (7 sets, daily range): BP systolic 100–136; BP diastolic 51–70
[2019-02-15] MEDS: TraMADol HCL 50 MG TABLET PO PRN ×2 (00:01→20:25)
[2019-02-15] MEDS: ALBUTEROL SULFATE 2.5 MG/0.5 ML NEB SOLUTION NEB SCH ×4 (02:36→19:43)
[2019-02-15] MEDS: IPRATROPIUM BROMIDE 0.5 MG/2.5 ML NEB SOLUTION NEB SCH ×4 (02:36→19:42)
[2019-02-15] MEDS: LACTULOSE 20 GM/30 ML SOLUTION UDCUP PO SCH ×4 (06:00→23:14)
[2019-02-15 07:24] LABS: EOSINOPHILS % (AUTO) 0 % (1.0-6.0); HEMOGLOBIN 10.5 g/dL (13.5-17.5); LYMPHOCYTES # (AUTO) 0.5 K/uL (1.0-4.8); LYMPHOCYTES % (AUTO) 5.4 % (22.0-44.0); MEAN CORPUSCULAR HEMOGLOBIN 32.4 pg (26.0-34.0); MEAN CORPUSCULAR HGB CONC 33.8 G/dL (31.0-37.0); MEAN CORPUSCULAR VOLUME 96 fL (80-100); MONOCYTES # (AUTO) 0.4 K/uL (0.1-1.0); MONOCYTES % (AUTO) 4.5 % (2.0-9.0); NEUTROPHILS # (AUTO) 8.4 K/uL (1.8-7.7); PLATELET COUNT (AUTO) 101 K/uL (150-450); RED BLOOD CELL COUNT(AUTO) 3.24 MIL/uL (4.50-5.90); RED CELL DISTRIBUTION WIDTH 15.1 % (11.5-14.5)
[2019-02-15 07:25] LABS: NEUTROPHILS % (AUTO) 90.1 % (40.0-70.0)
[2019-02-15] MEDS: DOXYCYCLINE HYCLATE 100 MG in DEXTROSE 5%-WATER 100 ML IV SCH ×2 (07:34→21:35)
[2019-02-15] MEDS: RIFAXIMIN 550 MG TABLET PO SCH ×2 (07:35→21:35)
[2019-02-15] MEDS: TAMSULOSIN HCL 0.4 MG CAPSULE PO SCH (07:35)
[2019-02-15] MEDS: PANTOPRAZOLE SODIUM 40 MG/VIAL IVP SCH (07:35)
[2019-02-15 07:43] LABS: ANION GAP 2 mmol/L (8-16); CALCIUM, TOTAL 8.5 mg/dL (8.8-10.5); CARBON DIOXIDE 37 mmol/L (22-29); CHLORIDE 99 mmol/L (98-107); CREATININE 1.15 mg/dL (0.60-1.30); GLOMERULAR FILTR. RATE CALC > 60 mL/min (>60); GLUCOSE,RANDOM 133 mg/dL (70-110); POTASSIUM 4.1 mmol/L (3.5-5.1); SODIUM SERUM 138 mmol/L (136-145); UREA NITROGEN, BLOOD 32 mg/dL (7-18)
[2019-02-15] MEDS: MethylPREDNISolone SOD SUCC 125 MG/2 ML VIAL IVP SCH ×3 (07:47→23:14)
[2019-02-15] MEDS: METOPROLOL TARTRATE 25 MG TABLET PO SCH ×2 (12:51→21:37)
[2019-02-15] MEDS: CefTRIAXone SODIUM 2 GM in DEXTROSE 5%-WATER 50 ML IV SCH (20:25)
[2019-02-15] MEDS: ATORVASTATIN CALCIUM 10 MG TABLET PO SCH (21:35)
[2019-02-15] MEDS: APIXABAN 5 MG TABLET PO SCH (21:35)
[2019-02-15] MEDS: ZOLPIDEM TARTRATE 5 MG TABLET PO PRN (23:19)
[2019-02-16] MEDS: ALBUTEROL SULFATE 2.5 MG/0.5 ML NEB SOLUTION NEB SCH ×4 (02:37→19:50)
[2019-02-16] MEDS: IPRATROPIUM BROMIDE 0.5 MG/2.5 ML NEB SOLUTION NEB SCH ×4 (02:38→19:50)
[2019-02-16] MEDS ORDERED: SODIUM CHLORIDE 0.9% 250 ML IV ONE (04:57)
[2019-02-16 05:06] VITALS: BP 144/75
[2019-02-16] MEDS: LACTULOSE 20 GM/30 ML SOLUTION UDCUP PO SCH ×4 (05:08→23:44)
[2019-02-16] MEDS: TraMADol HCL 50 MG TABLET PO PRN ×2 (06:52→16:01)
[2019-02-16 07:13] LABS: ANION GAP 4 mmol/L (8-16); CALCIUM, TOTAL 8.7 mg/dL (8.8-10.5); CARBON DIOXIDE 36 mmol/L (22-29); CHLORIDE 99 mmol/L (98-107); CREATININE 1.02 mg/dL (0.60-1.30); GLOMERULAR FILTR. RATE CALC > 60 mL/min (>60); GLUCOSE,RANDOM 130 mg/dL (70-110); POTASSIUM 3.9 mmol/L (3.5-5.1); SODIUM SERUM 139 mmol/L (136-145); UREA NITROGEN, BLOOD 34 mg/dL (7-18)
[2019-02-16 07:29] VITALS: BP 125/62
[2019-02-16] MEDS: PANTOPRAZOLE SODIUM 40 MG/VIAL IVP SCH (08:54)
[2019-02-16] MEDS: APIXABAN 5 MG TABLET PO SCH ×2 (08:54→21:42)
[2019-02-16] MEDS: TAMSULOSIN HCL 0.4 MG CAPSULE PO SCH (08:54)
[2019-02-16] MEDS: MethylPREDNISolone SOD SUCC 125 MG/2 ML VIAL IVP SCH ×3 (08:54→23:44)
[2019-02-16] MEDS: METOPROLOL TARTRATE 25 MG TABLET PO SCH ×2 (08:55→21:42)
[2019-02-16] MEDS: DOXYCYCLINE HYCLATE 100 MG in DEXTROSE 5%-WATER 100 ML IV SCH ×2 (08:55→21:42)
[2019-02-16] MEDS: RIFAXIMIN 550 MG TABLET PO SCH ×2 (08:55→21:42)
[2019-02-16 11:48] VITALS: BP 116/66
[2019-02-16] MEDS ORDERED: APIX5TAB PO (13:17)
[2019-02-16] MEDS ORDERED: IPRNEB IH ×2 (13:26→13:40)
[2019-02-16] MEDS ORDERED: METO25 PO (13:30)
[2019-02-16] MEDS ORDERED: SM40I IVP (13:31)
[2019-02-16] MEDS ORDERED: PANT40VI14 IVP (13:34)
[2019-02-16] MEDS ORDERED: AUD NEB (13:37)
[2019-02-16] MEDS ORDERED: TRAM50TA4 PO (13:41)
[2019-02-16] MEDS ORDERED: ZOLP5 PO (13:42)
[2019-02-16] MEDS ORDERED: CEFO1VIA IV (14:34)
[2019-02-16 15:26] VITALS: BP 117/70
[2019-02-16 20:18] VITALS: BP 112/73
[2019-02-16] MEDS: CefTRIAXone SODIUM 2 GM in DEXTROSE 5%-WATER 50 ML IV SCH (20:38)
[2019-02-16] MEDS: ATORVASTATIN CALCIUM 10 MG TABLET PO SCH (21:43)
[2019-02-17 00:09] VITALS: BP 100/56
[2019-02-17] MEDS: TraMADol HCL 50 MG TABLET PO PRN ×2 (00:46→11:50)
[2019-02-17] MEDS: ZOLPIDEM TARTRATE 5 MG TABLET PO PRN (01:30)
[2019-02-17] MEDS: ALBUTEROL SULFATE 2.5 MG/0.5 ML NEB SOLUTION NEB SCH ×3 (02:48→14:42)
[2019-02-17] MEDS: IPRATROPIUM BROMIDE 0.5 MG/2.5 ML NEB SOLUTION NEB SCH ×3 (02:48→14:42)
[2019-02-17 04:37] VITALS: BP 115/54
[2019-02-17] MEDS: LACTULOSE 20 GM/30 ML SOLUTION UDCUP PO SCH ×2 (06:28→11:50)
[2019-02-17 07:17] VITALS: BP 116/58
[2019-02-17] MEDS: RIFAXIMIN 550 MG TABLET PO SCH (08:52)
[2019-02-17] MEDS: APIXABAN 5 MG TABLET PO SCH (08:52)
[2019-02-17] MEDS: DOXYCYCLINE HYCLATE 100 MG in DEXTROSE 5%-WATER 100 ML IV SCH (08:52)
[2019-02-17] MEDS: METOPROLOL TARTRATE 25 MG TABLET PO SCH (08:52)
[2019-02-17] MEDS: TAMSULOSIN HCL 0.4 MG CAPSULE PO SCH (08:52)
[2019-02-17] MEDS: MethylPREDNISolone SOD SUCC 125 MG/2 ML VIAL IVP SCH ×2 (08:53→15:36)
[2019-02-17] MEDS: PANTOPRAZOLE SODIUM 40 MG/VIAL IVP SCH (08:53)
[2019-02-17 11:18] VITALS: BP 136/64
[2019-02-17 15:03] VITALS: BP 136/78
== END 2019-02-17 16:55 | DRG 291 ==
LOC: EMS 10:29 → 5S 15:19
PROVIDERS: ADMIT Internal Medicine; ATTEND Internal Medicine
PROC: 5A09357 Assistance with Respiratory Ventilation, Less than 24 Consecutive Hours, Continuous Positive Airway Pressure (ICD-10-PCS; principal; 2019-02-12)
PROC: 5A09357 Assistance with Respiratory Ventilation, Less than 24 Consecutive Hours, Continuous Positive Airway Pressure (ICD-10-PCS; 2019-02-13)
DX: I11.0 Hypertensive heart disease with heart failure (principal); J96.01 Acute respiratory failure with hypoxia; J18.9 Pneumonia, unspecified organism; I50.31 Acute diastolic (congestive) heart failure; J96.02 Acute respiratory failure with hypercapnia; E87.2 Acidosis; I69.351 Hemiplegia and hemiparesis following cerebral infarction affecting right dominant side; N39.0 Urinary tract infection, site not specified; Z16.12 Extended spectrum beta lactamase (ESBL) resistance; R65.10 Systemic inflammatory response syndrome (SIRS) of non-infectious origin without acute organ dysfunction; D69.59 Other secondary thrombocytopenia; B19.20 Unspecified viral hepatitis C without hepatic coma; E78.5 Hyperlipidemia, unspecified; E83.42 Hypomagnesemia; F10.10 Alcohol abuse, uncomplicated; R68.0 Hypothermia, not associated with low environmental temperature; E03.9 Hypothyroidism, unspecified; F11.90 Opioid use, unspecified, uncomplicated; F32.9 Major depressive disorder, single episode, unspecified; F12.90 Cannabis use, unspecified, uncomplicated; F17.210 Nicotine dependence, cigarettes, uncomplicated; I48.91 Unspecified atrial fibrillation; J43.9 Emphysema, unspecified; K21.9 Gastro-esophageal reflux disease without esophagitis; K70.30 Alcoholic cirrhosis of liver without ascites; N40.0 Benign prostatic hyperplasia without lower urinary tract symptoms; Z82.49 Family history of ischemic heart disease and other diseases of the circulatory system; Z91.19 Patient's noncompliance with other medical treatment and regimen; Z88.5 Allergy status to narcotic agent; Z79.899 Other long term (current) drug therapy
CPT/HCPCS: 36600; 51702; 71250; 76700; 82805; 83036; 83605; 83735; 84100; 84132; 84443; 87040; 87070; 87086; 87205; 87804; 93005; 93306; 93970; 94640; 94644; 94660; 96365; 96368; 96375; 97162; 97530; 99291; 99292; C9113; J0696; J1940; J1956; J2060; J2405; J2543; J2920; J2930; J3475; J3480; J3490; J7030; J7050; J7060